=== PATIENT | female | born 1940 | race Caucasian/White ===

== ENCOUNTER → 2017-01-24 | Outpatient (CLI) | payer OTHER ==
[~2017-01-24] MED LIST: ACC10 PO; ASPEC81 PO; ATEN-175 PO; CLTP PO; COQ 10 PO; FLAX SEED OIL PO; FRS/40 PO; MULT-506 PO; OMEG10007 PO; POTA-335 PO
[2017-01-24 22:33] LABS: MEAN CELL VOLUME 95.9 fL (80-100); MEAN CORPUSCULAR HEMOGLOBIN 31.1 pg (25-34); MEAN CORPUSCULAR HGB CONC 32.4 g/dl (32-36); MEAN PLATELET VOLUME 10.3 fL (7.4-10.4); PLATELET COUNT 278 K/uL (130-400); RED BLOOD COUNT 5.11 M/uL (4.2-5.4); WHITE BLOOD COUNT 9.48 K/uL (4.8-10.8)
[2017-01-24 22:45] LABS: ALT/SGPT 20 U/L (12-78); BLOOD UREA NITROGEN 13 mg/dl (7-18); BUN/CREATININE RATIO 14.3 (10-20); CARBON DIOXIDE 29 mmol/L (21-32); CHLORIDE 103 mmol/L (98-107); CREATININE 0.93 mg/dl (0.60-1.20); GLUCOSE 114 mg/dl (70-99); POTASSIUM 4.3 mmol/L (3.5-5.1); SODIUM 139 mmol/L (136-145)
[2017-01-24 22:49] LABS: ALB/GLOB RATIO 0.8 (0.9-2); ALKALINE PHOSPHATASE 81 U/L (45-117); AST/SGOT 16 U/L (15-37)
[2017-01-24 22:55] LABS: CALCIUM 9.1 mg/dl (8.5-10.1)
== END | disposition home or self-care (01) ==
LOC: C.LAB 21:08
PROVIDERS: ATTEND Family Medicine
DX: M79.89 Other specified soft tissue disorders (principal)

== ENCOUNTER 2018-11-21 10:49 | Inpatient (IN) ==
[2018-11-21 11:52] LABS: Basophils # (auto) 0.02 K/uL (0-0.2); Basophils % (auto) 0.2 %; Eosinophils # (auto) 0.08 K/uL (0-0.5); Eosinophils % (auto) 0.9 %; Hematocrit (blood only) 41.7 % (37-47); Hemoglobin 12.9 g/dL (12.0-16.0); Immature Granulocytes # (auto) 0.02 K/uL (0.00-0.02); Immature Granulocytes % (auto) 0.2 %; Mean Corpuscular Hgb Conc 30.9 g/dL (32-36); Mean Corpuscular Volume 97.4 fL (80-100); Mean Platelet Volume 11.2 fL (7.4-10.4); Monocytes # (auto) 0.54 K/uL (0.11-0.59); Monocytes % (auto) 6.4 %; Neutrophils # (auto) 6.67 K/uL (1.4-6.5); Neutrophils % (auto) 79.3 %; Platelet Count 250 K/uL (130-400); RDW Coefficient of Variation 14.7 % (11.5-14.5); RDW Standard Deviation 52.2 fL (36.4-46.3); Red Blood Count 4.28 M/uL (4.2-5.4); White Blood Count 8.43 K/uL (4.8-10.8)
[2018-11-21 12:10] LABS: Alanine Aminotransferase 16 U/L (12-78); Albumin Level 3.4 gm/dl (3.4-5.0); Aspartate Aminotransferase 18 U/L (15-37); BUN Creatinine Ratio 21.3 (10-20); Blood Urea Nitrogen 22 mg/dl (7-18); Calcium 9.4 mg/dl (8.5-10.1); Carbon Dioxide 31 mmol/L (21-32); Chloride 105 mmol/L (98-107); Est GFR (African American) 59.9; Est GFR (Non-African American) 51.7; Glucose 121 mg/dl (70-99); INR 1.1 (0.9-1.1); Partial Thromboplastin Ratio 0.9; Partial Thromboplastin Time 23.2 Seconds (21.0-31.0); Potassium 4.1 mmol/L (3.5-5.1); Prothrombin Time 11.1 Seconds (9.0-12.0); Sodium 141 mmol/L (136-145)
[2018-11-21 12:18] LABS: Albumin Globulin Ratio 0.9 (0.9-2); Alkaline Phosphatase 73 U/L (45-117); Bilirubin,Total 0.6 mg/dl (0.2-1); Globulin 3.8 gm/dl (2.5-4.0); Total Protein 7.2 gm/dl (6.4-8.2); Troponin I 0.093 ng/ml (0-0.045)
--- NOTE | 2018-11-21 12:20 | XRay Report ---
XR chest 1V portable CLINICAL HISTORY: Cough. Shortness of breath. COMPARISON STUDY: Chest radiograph October 18, 2018. FINDINGS: Median sternotomy wires are noted. Cardiomegaly is noted. Lung volumes are diminished. Ther e is no pneumothorax. Small left and trace right pleural effusions are noted. Interstitial thickening is noted with bilateral airspace opacities. IMPRESSION: 1. Low lung volumes. Small left and trace right pleural effusions. 2. Interstitial thickening and bilateral opacities which favor pulmonary edema however an infectious process could appear similar. Electronically signed by: Elder Ceballos M.D. 11/21/2018 12:19 PM
[2018-11-21] MEDS ORDERED: ASPIRIN CHEW 324 MG PO STA (12:39)
[2018-11-21] MEDS ORDERED: BUMETANIDE 1 MG in SYRINGE 0 ML IV SCH (12:45)
[2018-11-21] MEDS ORDERED: BUMETANIDE 1 MG in SYRINGE 0 ML IV ONE (13:15)
[2018-11-21] MEDS ORDERED: ASPIRIN CHEW 324 MG ONE (13:30)
[2018-11-21] MEDS ORDERED: ACETAMINOPHEN 325 MG TAB PO PRN (14:45)
[2018-11-21] MEDS ORDERED: ALUMINUM/MAGNESIUM SUSP 30 ML UDC PO PRN (14:45)
[2018-11-21] MEDS ORDERED: ONDANSETRON INJ 2 MG/ML 2 ML VIAL IV PRN (14:45)
[2018-11-21] MEDS ORDERED: POLYETHYLENE (MIRALAX) 17 GM PACK PO PRN (14:45)
[2018-11-21] MEDS ORDERED: PERFLUTREN LIPID MICROSPHERE (DEFINITY) IV ONE (15:24)
[2018-11-21] MEDS ORDERED: HEPARIN IV BOLUS 5,000 UNITS in SYRINGE 0 ML IV ONE (16:15)
--- NOTE | 2018-11-21 16:18 | History & Physical Report ---
Date of Service November 21, 2018 Assessment & Plan (1) Elevated troponin: Patient has a minorly elevated troponin coupled with some dynamic EKG changes. Patient will be fully anticoagulated with heparin and troponin will be trended. The patient has refused any consideration for cardiac catheterization maintaining her beta-haseeb which is atenolol this may be considered to be changed to metoprolol. If she has chest pain we may consider adding nitrates. We will supplement her oxygen given her chronic lung disease. If we have any issues with rhythm or progressive changes we may involve cardiology consultation although she typically sees gate manager at another facility this appears to possibly be an N STEMI (2) CHF (congestive heart failure): Patient is acute on chronic diastolic heart failure she is given Bumex in the ER intravenously this will be continued paying attention to her electrolytes and renal function. At discharge she was placed on Aldactone she says she is not on that medication any longer (3) Coronary artery disease involving coronary bypass graft: Patient is a history of coronary artery disease with bypass grafting and multiple stents in the past. She previously has self discontinued Plavix therapy due to epistaxis she is maintained on aspirin 81 mg which will be escalated to 325 given the recent EKG changes atenolol 50 mg a day and is also on lisinopril outpatient dose is in question she believes is 40 our last record was 5 but subsequently only used 20 mg at this time (4) Restrictive lung disease: Patient has restrictive lung disease due to kyphoscoliosis. Typically does wear some oxygen at home. We will continue supplementing her oxygen we will not need any bronchodilators at this time (5) DVT prophylaxis: DVT prevention is heparin parenterally at this time History of Present Illness Primary Care Provider: Nicole Packer DO Patient presents to the ER with about a 6week incidence of slowly progressive shortness of breath and weight gain. She states her normal weight about 172 pounds she feels she is in the mid 180s. She is not tried to self increase any of her diuretic therapy at home until the last few days where she went from 1 mg of Bumex a day to 1-1/. She had no chest pain or pressure along the way she denies any dietary medical indiscretion along the way she does have a significant history most recently of having multiple recurrent pneumonias and usually either complicated by heart failure or heart failure complicated by pneumonia where she is been in and out of the hospital over the last 6 months. Patient gets most of her cardiology care and [place] with Dr. Mustafa. She previously has had a CABG stenting and aortic valve replacement which has been a bioprosthetic valve currently today the patient had no fevers or chills or cou ghing she does feel short of breath she is markedly swollen lower extremities in the emergency department she is found to have elevated troponin some T wave inversions which seem to be new on her EKG and chest x-ray consistent with bilateral pulmonary edema. She previously carries to the diagnosis of diastolic heart failure having a most recent echocardiogram in our facility over one year ago showing a preserved ejection fraction. In the ER the patient supplemental oxygen and Bumex therapy with the beginning of diuresis remainder of her evaluation other than was noted it was unremarkable Allergies Allergy/AdvReac Type Severity Reaction Status Date / Time cefaclor Allergy Unknown Verified 11/21/18 14:09 ibuprofen Allergy Unknown Verified 11/21/18 14:09 Home Medications Home Medications Medication Instructions Recorded Confirmed Type aspirin 81 mg PO HS 11/21/18 11/21/18 History atenolol 50 mg PO BID 11/21/18 11/21/18 History bumetanide 1 mg PO DAILY 11/21/18 11/21/18 History calcium carbonate-vitamin D3 1 tab PO BID 11/21/18 11/21/18 History [Caltrate 600 + D] cyanocobalamin (vitamin B-12) 1,000 mcg PO DAILY 11/21/18 11/21/18 History [Vitamin B-12] lisinopril 40 mg PO DAILY 11/21/18 11/21/18 History potassium chloride 20 meq PO DAILY 11/21/18 11/21/18 History Past Med/Surg History Medical History Respiratory distress CHF (congestive heart failure) Chronic diastolic heart failure Coronary artery disease involving coronary bypass graft History of pneumonia Restrictive lung disease Due to kyphoscoliosis Surgical History H/O aortic valve replacement with tissue graft Family History Unknown Coronary heart disease Other Family history non-contributory Social History Preferred Language: Bahraini Communication Ability: Effective Record Librarian Required: No marital status: Current Living Situation: Spouse current occupational status: retired Other Information That Helps Us Care for You: No Feels Safe at Home: Yes Safety Concerns: Feels Safe At This Time Smoking Status: Never smoker Do You Dip or Chew Tobacco: No Second Hand Exposure: No Tobacco Cessation Education Requested by Patient: No Hx Alcohol Use: No Hx Substance Use: No Review of Systems Review of Systems: ROS: Patient is tonic chronically ill and fatigued No double vision blurry vision No problems with speech or swallowing No palpitations, chest pain or pressure Dyspnea on exertion and orthopnea is complained of No abdominal pain nausea vomiting diarrhea increased weight gain as mentioned No burning urine urine frequency or changes in color No focal joint pain or muscle pain Chronic changes to the skin coloration of her lower extremities No unusual bruising or bleeding No focused back pain or numbness or loss of strength No changes in memory or confusion Physical Exam Vital Signs (Past 24 Hours): Last Vital Signs Temp 36.4 C L 11/21/18 14:46 Pulse 65 11/21/18 14:46 Resp 16 11/21/18 14:46 BP 140/70 11/21/18 14:46 Pulse Ox 100 11/21/18 14:46 The patient appeared chronically ill and fatigued Vital signs as documented. Oxygen was supplementation is satisfactory Head exam is unremarkable. normocephalic, atraumatic Neck is with minor jugular venous distension, thyromegaly, or lymphademopathy Lungs are decreased bilaterally poor air movement and rales at the bases Cardiac exam reveals Rhythm is regular. Systolic ejection murmur is faintly heard at the right upper sternal border first and second heart sounds normal. Abdominal exam reveals normal bowel sounds, no masses, no organomegaly Extremities are 2+ edematous and both lower extremities with chronic venous stasis changes Neurologic exam is A&Ox3, no focal deficits, strength is equal bilateral Psychologically seems depressed Skin is warm Dry without bruises or lesions other than her venous stasis dermatitis Results & Data Diagnostic Findings Chest x-ray 1. Low lung volumes. Small left and trace right pleural effusions. 2. Interstitial thickening and bilateral opacities which favor pulmonary edema however an infectious process could appear similar. ECG Additional Comments: Appears to be sinus mechanism LVH there is T wave inversions inferior laterally computer reads out ST depression these are hard to see given the baseline
[2018-11-21] MEDS: Heparin Adult STANDARD Wt-Based Dextrose 5% 25,000 units/500 mL IV SCH (17:23)
[2018-11-21] MEDS: BUMETANIDE 1 MG in SYRINGE 0 ML IV SCH (17:31)
--- NOTE | 2018-11-21 20:12 | Emergency Department Note ---
Entered by Charissa Solomon acting as a scribe for Tru Huertas M.D. History of Present Illness General Chief complaint: Swelling/Edema to Extremity Stated complaint: FLUID RETENSTION IN LEGS Source: patient History of Present Illness Onset (ago): week(s) 2 Location: lower extremity Pain Consistency: + other (worsening) Maximum Pain Intensity: 3 Quality: + other (swelling) Relieved By: + other (Oxygen); not by medication (Bumex, Lasix) Exacerbated By: + other (lying flat) Associated symptoms: + denies other symptoms (abdominal pain, arm swelling), + shortness of breath and + other (weight gain); no chest pain and no fever/chills (fever) The patient is a 78 year old female who presents to the Emergency Room with complaints of worsening leg swelling starting 2 weeks ago. The patient states that she has CHF and believes that she is taking on more fluid again. She notes that she has had a 15 lb weight gain since starting to retain fluid. She states that both her legs are swollen up into her thighs. She reports that she has also been more short of breath than normal. She notes that she is normally on 3L oxygen with mild relief. She reports that the shortness of breath is worse when lying flat. The patients daughter states that her mother was on Lasix 2 times a day, but it wasnt working. She states that a week ago she was switched to Bumex, but it still hasnt been helping. She reports that she called her PCP yesterday about her symptoms and recommended that she come to the ED for IV Lasix. The patient denies chest pain, fever, abdominal pain, arm swelling up, and eating salt. Home Medications Home Medications Medication Instructions Recorded Confirmed Type aspirin 81 mg PO HS 11/21/18 11/21/18 History atenolol 50 mg PO BID 11/21/18 11/21/18 History bumetanide 1 mg PO DAILY 11/21/18 11/21/18 History calcium carbonate-vitamin D3 1 tab PO BID 11/21/18 11/21/18 History [Caltrate 600 + D] cyanocobalamin (vitamin B-12) 1,000 mcg PO DAILY 11/21/18 11/21/18 History [Vitamin B-12] lisinopril 40 mg PO DAILY 11/21/18 11/21/18 History potassium chloride 20 meq PO DAILY 11/21/18 11/21/18 History Allergies Allergy/AdvReac Type Severity Reaction Status Date / Time cefaclor Allergy Unknown Verified 11/21/18 14:09 ibuprofen Allergy Unknown Verified 11/21/18 14:09 Past Med/Surg History Medical History Respiratory distress CHF (congestive heart failure) Chronic diastolic heart failure Coronary artery disease involving coronary bypass graft History of pneumonia Restrictive lung disease Due to kyphoscoliosis Surgical History H/O aortic valve replacement with tissue graft Social History Preferred Language: Portuguese Communication Ability: Effective Manager Travel Required: No marital status: Current Living Situation: Spouse current occupational status: retired Other Information That Helps Us Care for You: No Feels Safe at Home: Yes Safety Concerns: Feels Safe At This Time Smoking Status: Never smoker Do You Dip or Chew Tobacco: No Second Hand Exposure: No Tobacco Cessation Education Requested by Patient: No Hx Alcohol Use: No Hx Substance Use: No Review of Systems See HPI for pertinent positives & negatives. and A total of 10 systems reviewed and were otherwise negative Physical Exam Vital Signs Vital Signs - 24 hr 11/21/18 10:51 11/21/18 11:45 11/21/18 12:50 Temperature 36.4 C L Temperature Source Oral Sepsis Recent Fever Within 48 Hours No Sepsis New/Unexplained Change in Mental Status No Sepsis Action Taken by Nursing No Action Required Pulse Rate 70 Pulse Rate [Finger] Pulse Rate [Right Apical] 64 Pulse Rhythm [Finger] Pulse Rhythm [Right Apical] Pulse Strength [Finger] Pulse Strength [Right Apical] Respiratory Rate 24 18 Respiratory Effort / Characteristics Respiratory Depth Respiratory Pattern Blood Pressure 151/83 H Blood Pressure [Left Arm] Blood Pressure [Right Arm] 142/76 H Blood Pressure Mean 105 Blood Pressure Mean [Left Arm] Blood Pressure Mean [Right Arm] 98 Blood Pressure Position [Left Arm] Pulse Oximetry 88 L 94 94 Oxygen Delivery Method Nasal Cannula Nasal Cannula Nasal Cannula Oxygen Flow Rate 3 4 4 11/21/18 13:50 11/21/18 14:46 11/21/18 15:09 Temperature 36.4 C L Temperature Source Oral Sepsis Recent Fever Within 48 Hours Sepsis New/Unexplained Change in Mental Status Sepsis Action Taken by Nursing Pulse Rate Pulse Rate [Finger] Pulse Rate [Right Apical] 65 Pulse Rhythm [Finger] Pulse Rhythm [Right Apical] Regular Pulse Strength [Finger] Pulse Strength [Right Apical] Normal Respiratory Rate 16 Respiratory Effort / Characteristics Spontaneous SOB on Exertion SOB on Exertion SOB on Exertion Respiratory Depth Normal Normal Normal Respiratory Pattern Regular Regular Regular Blood Pressure Blood Pressure [Left Arm] Blood Pressure [Right Arm] 140/70 Blood Pressure Mean Blood Pressure Mean [Left Arm] Blood Pressure Mean [Right Arm] 93 Blood Pressure Position [Left Arm] Pulse Oximetry 100 Oxygen Delivery Method Nasal Cannula Nasal Cannula Nasal Cannula Oxygen Flow Rate 4 5 5 11/21/18 19:26 Temperature 36.5 C Temperature Source Oral Sepsis Recent Fever Within 48 Hours Sepsis New/Unexplained Change in Mental Status Sepsis Action Taken by Nursing Pulse Rate Pulse Rate [Finger] 67 Pulse Rate [Right Apical] Pulse Rhythm [Finger] Regular Pulse Rhythm [Right Apical] Pulse Strength [Finger] Normal Pulse Strength [Right Apical] Respiratory Rate 18 Respiratory Effort / Characteristics Non-Labored Respiratory Depth Normal Respiratory Pattern Blood Pressure Blood Pressure [Left Arm] 99/51 L Blood Pressure [Right Arm] Blood Pressure Mean Blood Pressure Mean [Left Arm] 67 Blood Pressure Mean [Right Arm] Blood Pressure Position [Left Arm] Lying Pulse Oximetry 92 Oxygen Delivery Method Nasal Cannula Oxygen Flow Rate 5 GENERAL: Awake, alert, weak-appearing sitting up right HENT: Normocephalic, atraumatic. EYES: Normal conjunctiva. Sclera non-icteric. NECK: Supple. No nuchal rigidity. RESPIRATORY: Diminished breath sounds at the bases. Normal respiratory effort. CARDIAC: Normal rate. Normal rhythm. Extremities warm and well perfused. GI: Soft, non-distended. No tenderness to palpation. RECTAL: Deferred. MUSCULOSKELETAL: Atraumatic. Chest examination reveals no tenderness. LOWER EXTREMITIES: Calves are equal size bilaterally and non-tender. 2+ lower extremity edema with erythema bilaterally. NEURO: Normal sensorium. No sensory or motor deficits noted. No facial droop. SKIN: Warm and dry. No rash or jaundice noted. Course 1227: The patient was evaluated in room B6, and a complete history and physical examination were performed. I discussed her test results with her and updated her on her treatment plan at this time. 1241: I reviewed the patient's case with Dr. Baudilio SILVER Hospitalist. He will evaluate the patient for further management. Consultations Consultation #1: I reviewed the patient's case with Dr. Baudilio SILVER Hospitalist. He will evaluate the patient for further management. Time: 12:41 Administered Medications Bumetanide 1 mg/ Syringe 4 mls @ 4 mls/min IV BID@0900,1700 [facility] Stop: 12/21/18 16:59 Last Admin: 11/21/18 17:31 Dose: 4 mls/min Documented by: [id number] Heparin Sodium/Dextrose (Heparin Sodium/Dextrose) 25,000 units in 500 mls @ 23 mls/hr IV .[id number] [facility]; Protocol Stop: 12/21/18 16:14 Last Admin: 11/21/18 17:23 Dose: 1,150 units/hr, 23 mls/hr Documented by: [id number] Cosigned by: [id number] Discontinued Medications Aspirin (Aspirin) 324 mg PO NOW STA Stop: 11/21/18 12:40 Last Admin: 11/21/18 13:32 Dose: 324 mg Documented by: [id number] Heparin Sodium/Dextrose () 1 ea IV Q15M [facility]; Protocol Stop: 11/21/18 16:01 Last Admin: 11/21/18 18:00 Dose: Not Given Documented by: [id number] Admin: 11/21/18 18:00 Dose: Not Given Documented by: [id number] Admin: 11/21/18 18:00 Dose: Not Given Documented by: [id number] Admin: 11/21/18 18:00 Dose: Not Given Documented by: [id number] Admin: 11/21/18 17:59 Dose: Not Given Documented by: [id number] Bumetanide 1 mg/ Syringe 4 mls @ 4 mls/min IV NOW ONE Stop: 11/21/18 13:16 Last Admin: 11/21/18 13:32 Dose: 4 mls/min Documented by: [id number] Heparin Sodium (Porcine) 5,000 (units/ Syringe) 5 mls @ 10 mls/min IV NOW ONE Stop: 11/21/18 16:16 Last Admin: 11/21/18 17:21 Dose: 10 mls/min Documented by: [id number] Cosigned by: [id number] Perflutren Lipid Microsphere (Definity) 2 ml IV ONCE ONE Stop: 11/21/18 15:25 Last Admin: 11/21/18 15:24 Dose: 2 ml Documented by: [id number] Medical Decision Making Differential Diagnosis Differential diagnosis: Etiologies such as infections, reactive airway disease, COPD, pneumonia, pleural effusion, pulmonary edema, ARDS, pneumothorax, CHF, cardiac ischemia, cardiac tamponade, dysrhythmia, anemia, pulmonary embolism, musculoskeletal, gastrointestinal process, as well as others were entertained. Medical Records Attestation: I reviewed the patient's medical records. Home Medications Current Medication List: was personally reviewed by me Laboratory Data Attestation: I reviewed the patient's lab results. Result diagrams: 11/21/18 11:02 11/21/18 11: Lab Results 11/21/18 11/21/18 11/21/18 Range/Units 11:02 11:02 11:02 WBC 8.43 (4.8-10.8) K/uL RBC 4.28 (4.2-5.4) M/uL Hgb 12.9 (12.0-16.0) g/dL Hct 41.7 (37-47) % MCV 97.4 (80-100) fL MCH 30.1 (25-34) pg MCHC 30.9 L (32-36) g/dL RDW Std Deviation 52.2 H (36.4-46.3) fL RDW Coeff of Jose 14.7 H (11.5-14.5) % Plt Count 250 (130-400) K/uL MPV 11.2 H (7.4-10.4) fL Immature Gran % (Auto) 0.2 % Neut % (Auto) 79.3 % Lymph % (Auto) 13.0 % [place] % (Auto) 6.4 % Eos % (Auto) 0.9 % Baso % (Auto) 0.2 % Immature Gran # (Auto) 0.02 (0.00-0.02) K/uL Neut # (Auto) 6.67 H (1.4-6.5) K/uL Lymph # (Auto) 1.10 L (1.2-3.4) K/uL [place] # (Auto) 0.54 (0.11-0.59) K/uL Eos # (Auto) 0.08 (0-0.5) K/uL Baso # (Auto) 0.02 (0-0.2) K/uL PT 11.1 (9.0-12.0) Seconds INR 1.1 (0.9-1.1) APTT 23.2 (21.0-31.0) Seconds PTT Ratio 0.9 Sodium 141 (136-145) mmol/L Potassium 4.1 (3.5-5.1) mmol/L Chloride 105 (98-107) mmol/L Carbon Dioxide 31 (21-32) mmol/L Anion Gap 5.0 (3-11) BUN 22 H (7-18) mg/dl Creatinine 1.03 (0.6-1.2) mg/dl Est Cr Clr Drug Dosing Not Reportable Est GFR ( Amer) 59.9 Est GFR (Non-Af Amer) 51.7 BUN/Creatinine Ratio 21.3 H (10-20) Glucose 121 H (70-99) mg/dl Calcium 9.4 (8.5-10.1) mg/dl Total Bilirubin 0.6 (0.2-1) mg/dl AST 18 (15-37) U/L ALT 16 (12-78) U/L Alkaline Phosphatase 73 (45-117) U/L Troponin I 0.093 H* (0-0.045) ng/ml Total Protein 7.2 (6.4-8.2) gm/dl Albumin 3.4 (3.4-5.0) gm/dl Globulin 3.8 (2.5-4.0) gm/dl Albumin/Globulin Ratio 0.9 (0.9-2) Imaging Data Radiologist's Impression: Radiology results as stated below per my review and the radiologist's interpretation: XR chest 1V portable CLINICAL HISTORY: Cough. Shortness of breath. COMPARISON STUDY: Chest radiograph October 18, 2018. FINDINGS: Median sternotomy wires are noted. Cardiomegaly is noted. Lung volumes are diminished. There is no pneumothorax. Small left and trace right pleural effusions are noted. Interstitial thickening is noted with bilateral airspace opacities. IMPRESSION: 1. Low lung volumes. Small left and trace right pleural effusions. 2. Interstitial thickening and bilateral opacities which favor pulmonary edema however an infectious process could appear similar. Electronically signed by: Elder Ceballos M.D. 11/21/2018 12:19 PM ECG Data Attestation: I personally reviewed and interpreted this ECG as follows: Indication: SOB/dyspnea Rate (beats per minute): 65 Rhythm: normal sinus Findings: + other (tremor noted) and + nonspecific-ST abn; no ST elevation Blood Pressure Blood Pressure Findings: Elevated blood pressure Blood Pressure Disposition: further management by hospitalist AKILA Narrative 78-year-old female with a past medical history of CAD status post CABG and stent, CHF, hypertension presenting today complaining of increased fluid buildup in lower legs with shortness of breath on exertion. Patient hypoxic on room air. Patient's noted to have a positive troponin significantly elevated compared to previous. No leukocytosis or anemia. Kidney function appears stable. No evidence of hepatitis. Not having any chest pain. Evidence of significant fluid overload. Has been on increased Bumex for the last several weeks but no increased oxygen. Given IV Bumex here to help with diuresis. Will admit for further monitored IV diuresis given that she is failed outpatient diuresis and with the troponin. EKG was nonspecific T wave changes patient did not have active chest pain. Believe the troponin elevation is secondary to fluid overload status. Did give aspirin as well. Hospitalist contacted. Impression & Plan Pulmonary edema, CHF exacerbation, Non-ST elevation [place] (NSTEMI) Discharge Plan Visit Data *Final* Discharge Date/Time: 11/21/18 14:18 Chief Complaint: Swelling/Edema to Extremity Stated Complaint: FLUID RETENSTION IN LEGS ED Provider: Tru Huertas Discharge Problem: Pulmonary edema, CHF exacerbation, Non-ST elevation [place] (NSTEMI) Patient Disposition: Admitted As Inpatient Discharge Instructions Interventions: ED Discharge Assessment Last Done: 11/21/18 14:18 Discharge Problem: Pulmonary edema Qualifiers: Chronicity: chronic Qualified Code(s): J81.1 - Chronic pulmonary edema CHF exacerbation Qualifiers: Heart failure type: unspecified Qualified Code(s): I50.9 - Heart failure, unspecified The scribe's documentation has been prepared under my direction and personally reviewed by me in its entirety. I confirm that the note above accurately reflects all work, treatment, procedures, and medical decision making performed by me.
[2018-11-21] MEDS: DOCUSATE SODIUM 100 MG CAP PO SCH (20:57)
[2018-11-21 23:48] LABS: Partial Thromboplastin Ratio 1.9
[2018-11-21 23:55] LABS: Partial Thromboplastin Time 52.1 Seconds (21.0-31.0)
[2018-11-22 07:25] LABS: Partial Thromboplastin Ratio 1.8
[2018-11-22 07:26] LABS: Partial Thromboplastin Time 49.9 Seconds (21.0-31.0)
[2018-11-22] MEDS: LISINOPRIL 20 MG TAB PO SCH (07:34)
[2018-11-22] MEDS: POTASSIUM CHLORIDE 20 MEQ TABCR PO SCH (07:34)
[2018-11-22] MEDS: MULTIVITAMIN TAB PO SCH (07:34)
[2018-11-22] MEDS: FLUTICASONE PROPIONATE NA SPR 16 GM BTL SCH (07:35)
[2018-11-22] MEDS: DOCUSATE SODIUM 100 MG CAP PO SCH ×2 (07:35→20:31)
[2018-11-22] MEDS: ASPIRIN 325 MG ECTAB PO SCH (07:35)
[2018-11-22] MEDS: BUMETANIDE 1 MG in SYRINGE 0 ML IV SCH ×2 (07:36→17:50)
[2018-11-22 07:37] LABS: BUN Creatinine Ratio 22.6 (10-20); Calcium 8.9 mg/dl (8.5-10.1); Creatinine Clr Calc Pharmacy 38.6 ml/min; Est GFR (African American) 60.6; Est GFR (Non-African American) 52.3; Potassium 4.1 mmol/L (3.5-5.1)
[2018-11-22] MEDS ORDERED: ATENOLOL 50 MG TABLET PO SCH (09:00)
[2018-11-22] MEDS: SENNA 8.6 MG TAB PO SCH (12:04)
[2018-11-22] MEDS: Heparin Adult STANDARD Wt-Based Dextrose 5% 25,000 units/500 mL IV SCH (12:05)
--- NOTE | 2018-11-22 13:46 | Hospitalist Progress Note ---
Date of Service November 22, 2018 Assessment & Plan (1) Elevated troponin: Patient has a minorly elevated troponin coupled with some dynamic EKG changes. Patient's troponin remains elevated but is not trended upward. Patient remain on therapeutic heparin for 48 hours we may consider this demand ischemia unless troponin changes significantly the patient has refused any consideration for cardiac catheterization maintaining her beta-haseeb which is atenolol She states her atenolol was 25 twice daily supplement her oxygen given her chronic lung disease. (2) CHF (congestive heart failure): Patient is acute on chronic diastolic heart failure she is given Bumex in the ER intravenously this will be continued paying attention to her electrolytes and renal function. At discharge she was placed on Aldactone she says she is not on that medication any longer continue intravenous diuresis (3) Coronary artery disease involving coronary bypass graft: Patient is a history of coronary artery disease with bypass grafting and multiple stents in the past. She previously has self discontinued Plavix therapy due to epistaxis she is maintained on aspirin 81 mg which will be escalated to 325 given the recent EKG changes atenolol 25 twice daily and is also on lisinopril outpatient dose is in question she believes is 40 our last record was 5 but subsequently only used 20 mg at this time (4) Restrictive lung disease: Patient has restrictive lung disease due to kyphoscoliosis. Typically does wear some oxygen at home. We will continue supplementing her oxygen she has not showed a need for any bronchodilators at this time Chronic respiratory failure with hypoxia (5) DVT prophylaxis: DVT prevention is heparin parenterally at this time (6) Morbid obesity: Morbid obesity, BMI 44.0 kg/m*m Subjective Patient states she feels improved she feels less swollen and less short of breath Review of Systems Review of Systems: ROS: We kyphotic and chronically ill No double vision blurry vision No problems with speech or swallowing No palpitations, chest pain or pressure No baseline dyspnea No abdominal pain nausea vomiting diarrhea changes in appetite or weight No burning urine urine frequency or changes in color No focal joint pain or muscle pain baseline lower extremity edema No skin rashes or oral lesions No unusual bruising or bleeding Persistent chronic back pain but no numbness or loss of strength No changes in memory or confusion Physical Exam Physical Exam: The patient appeared well nourished and normally developed. Vital signs as documented. Head exam is unremarkable. normocephalic, atraumatic Neck is without jugular venous distension, thyromegaly, or lymphademopathy Lungs are clear with decreased breath sounds heard bilaterally Cardiac exam reveals Rhythm is regular systolic ejection murmur is heard. First and second heart sounds normal. Abdominal exam reveals normal bowel sounds, no masses, no organomegaly Extremities are mild to moderately edematous and both pedal pulses are present Neurologic exam is A&Ox3, no focal deficits, strength is equal bilateral Psychologically seems neither anxious or depressed Skin is warm Dry Results & Data Vital Signs (Past 12 Hours) Vital Signs Temp Pulse Resp BP Pulse Ox 11/22/18 11:09 36.7 C 62 20 101/51 L 92 11/22/18 07:25 36.7 C 66 24 117/60 91 11/22/18 03:24 36.9 C 66 24 126/55 L 90
--- NOTE | 2018-11-22 16:54 | Cardiology Consultation ---
Date of Consultation November 22, 2018 Assessment & Plan (1) Elevated troponin: Her troponin on presentation was slightly elevated at 0.093, this added descending pattern over the next 2 subsequent measurements. This is consistent with demand ischemia from hypoxia and her known heart disease. I would not pursue further evaluation. (2) CHF exacerbation: It sounds as though she had a gradual worsening of her heart failure until she presented with fluid overload and worsening shortness of breath. She seems quite cognizant of fluid and salt restriction. She has responded well to initial diuresis. Her echocardiogram does not show any significant changes (although she has worsening of her pulmonary hypertension) which would explain heart failure. I would therefore treat her as you are with diuresis. (3) Pulmonary hypertension: Her echocardiogram shows significant pulmonary hypertension. This is no doubt on the basis of long-standing lung disease and hypoxia. Diuresis may help somewhat, there is little else to do. 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 This is based on exam and recent echo. This valve does not require anticoagulation. (5) Mitral regurgitation: She has mitral regurgitation, evidently this was not seen on her prior echocardiogram but it is eccentric and perhaps it was missed. It may be contributing to pulmonary hypertension, and it may be contributing to her CHF but it is not severe enough that we would consider valve replacement or surgery. She seems to be aware that she has difficulties with her valve and that she is not a surgical candidate for repair of it. History of Present Illness Reason for Consultation: CHF, elevated troponin Attending Physician: Aniceto Day MD History of Present Illness This is a 78-year-old woman with a history of coronary artery disease and aortic valve abnormalities who underwent aortic valve replacement in 2001 (she tells me it is a human valve) along with bypass surgery x2. She has also had PCI in the past. I believe her last intervention was October 06, 2017. She has chronic diastolic congestive heart failure, obstructive sleep apnea for which she uses CPAP and pulmonary hypertension. She presents now with shortness of breath. She describes 1 month of progressive shortness of breath and weight gain. She has been adjusting her diuretics but has continued to gain weight and become short of breath. She is on chronic oxygen at home and she noted that her oximetry reading was low even on her normal 3 L/min. She came into the emergency room and was felt to be in congestive heart failure and received diuretics. Today she feels better although she is still having shortness of breath. She feels that she has had a good diuresis. She does not have chest discomfort. She was observed to have an elevated troponin as well and her electrocardiogram had some anterior T wave abnormalities which may be dynamic. Allergies Allergy/AdvReac Type Severity Reaction Status Date / Time cefaclor Allergy Unknown Verified 11/21/18 14:09 ibuprofen Allergy Unknown Verified 11/21/18 14:09 Home Medications Home Medications Medication Instructions Recorded Confirmed Type aspirin 81 mg PO HS 11/21/18 11/21/18 History atenolol 50 mg PO BID 11/21/18 11/21/18 History bumetanide 1 mg PO DAILY 11/21/18 11/21/18 History calcium carbonate-vitamin D3 1 tab PO BID 11/21/18 11/21/18 History [Caltrate 600 + D] cyanocobalamin (vitamin B-12) 1,000 mcg PO DAILY 11/21/18 11/21/18 History [Vitamin B-12] lisinopril 40 mg PO DAILY 11/21/18 11/21/18 History potassium chloride 20 meq PO DAILY 11/21/18 11/21/18 History Patient History Medical History Respiratory distress CHF (congestive heart failure) Chronic diastolic heart failure Coronary artery disease involving coronary bypass graft History of pneumonia Restrictive lung disease Due to kyphoscoliosis Surgical History H/O aortic valve replacement with tissue graft Family History Unknown Coronary heart disease Other Family history non-contributory Social History Preferred Language: Wallisian Communication Ability: Effective Mental Health Program Director Required: No marital status: Current Living Situation: Spouse current occupational status: retired Other Information That Helps Us Care for You: No Feels Safe at Home: Yes Safety Concerns: Feels Safe At This Time Smoking Status: Never smoker Do You Dip or Chew Tobacco: No Second Hand Exposure: No Tobacco Cessation Education Requested by Patient: No Hx Alcohol Use: No Hx Substance Use: No Review of Systems Review of Systems: All systems reviewed & are unremarkable except as noted in HPI & below Physical Exam Physical Exam: Constitutional: Alert, cooperative and in no distress. HEENT: Unremarkable Neck: No jugular venous distention, carotid pulses are normal and equal bilaterally without bruits. Pulmonary: Clear to auscultation bilaterally. Cardiac: Regular rhythm with a soft crescendo decrescendo murmur at the base with a grade 2/6 holosystolic murmur at the apex, no gallop or rub. Abdomen: Soft, nontender with normal bowel sounds. Extremities: +3 bilateral pretibial edema. Distal pulses intact. Neurologic: No focal findings. Gait was not tested. Skin: No rash, ecchymoses or petechiae. Results & Data Vital Signs (Past 12 Hours) Vital Signs Temp Pulse Resp BP BP Pulse Ox 11/22/18 15:27 36.5 C 69 19 133/71 91 11/22/18 11:09 36.7 C 62 20 101/51 L 92 11/22/18 07:25 36.7 C 66 24 117/60 91 Diagnostic Findings Her presenting electrocardiogram shows sinus rhythm at 65 bpm with inferior and anterior T wave abnormalities including T wave inversion. Another electrocardiogram done today shows sinus rhythm at 65 bpm with nonspecific inferior and anterior ST-T abnormalities, slight improvement in precordial T wave inversion but not a lot different. An echocardiogram done yesterday shows normal left ventricular size and function with mild concentric left ventricular hypertrophy, moderate to severe mitral calcification with moderate mitral regurgitation, severe pulmonary hypertension. The estimated pulmonary arterial pressure 65 to 70 mmHg. Telemetry: Sinus rhythm, no significant abnormality (1) CHF exacerbation Heart failure type: unspecified Qualified Code(s): I50.9 - Heart failure, unspecified
[2018-11-22] MEDS: ATENOLOL 25 MG TABLET PO SCH (20:32)
[2018-11-23 06:56] LABS: Hematocrit (blood only) 36.6 % (37-47); Hemoglobin 11.3 g/dL (12.0-16.0); Mean Corpuscular Hgb Conc 30.9 g/dL (32-36); Mean Corpuscular Volume 96.6 fL (80-100); Mean Platelet Volume 11.2 fL (7.4-10.4); Platelet Count 211 K/uL (130-400); RDW Coefficient of Variation 14.7 % (11.5-14.5); RDW Standard Deviation 52.4 fL (36.4-46.3); Red Blood Count 3.79 M/uL (4.2-5.4); White Blood Count 6.54 K/uL (4.8-10.8)
[2018-11-23 07:06] LABS: Partial Thromboplastin Ratio 1.2; Partial Thromboplastin Time 31.7 Seconds (21.0-31.0)
[2018-11-23 07:26] LABS: BUN Creatinine Ratio 27.5 (10-20); Calcium 8.9 mg/dl (8.5-10.1); Creatinine Clr Calc Pharmacy 41.9 ml/min; Est GFR (African American) 66.9; Est GFR (Non-African American) 57.7
[2018-11-23] MEDS: DOCUSATE SODIUM 100 MG CAP PO SCH ×2 (08:53→20:09)
[2018-11-23] MEDS: BUMETANIDE 1 MG in SYRINGE 0 ML IV SCH ×2 (08:53→17:06)
[2018-11-23] MEDS: ATENOLOL 25 MG TABLET PO SCH ×2 (08:53→20:10)
[2018-11-23] MEDS: MULTIVITAMIN TAB PO SCH (08:53)
[2018-11-23] MEDS: LISINOPRIL 20 MG TAB PO SCH (08:53)
[2018-11-23] MEDS: POTASSIUM CHLORIDE 20 MEQ TABCR PO SCH (08:53)
[2018-11-23] MEDS: SENNA 8.6 MG TAB PO SCH (08:54)
[2018-11-23] MEDS: FLUTICASONE PROPIONATE NA SPR 16 GM BTL SCH (08:54)
[2018-11-23] MEDS: ASPIRIN 325 MG ECTAB PO SCH (08:54)
--- NOTE | 2018-11-23 10:24 | XRay Report ---
XR chest 1V portable CLINICAL HISTORY: hypoxia dyspnea COMPARISON STUDY: 11/21/2018 FINDINGS: Slight increase in volume of a left basilar pleural effusion. Moderate stable cardiomegaly. Right lung is considered clear. IMPRESSION: Slight increase in volume of a left basilar pleural effusion. Study is otherwise unchang ed. The above report was generated using voice recognition software. It may contain grammatical, syntax or spelling errors. Electronically signed by: Andrés Joaquin M.D. 11/23/2018 10:22 AM
[2018-11-23 11:40] LABS: Albumin Level 3.1 gm/dl (3.4-5.0); Total Protein 6.5 gm/dl (6.4-8.2)
--- NOTE | 2018-11-23 15:24 | Hospitalist Progress Note ---
Date of Service November 23, 2018 Assessment & Plan (1) Acute on chronic respiratory failure with hypoxia: Patient is more profoundly hypoxic she has multiple medical reasons that all result in her having respiratory failure from restrictive lung disease due to her kyphosis to her previous history of heart failure to likely atelectasis due to a small pleural effusion. These of all added together to create more profound hypoxia. The patient is agreeable to trying BiPAP in a short-term [place] consultation is also engaged the BiPAP is hopeful to recruit some of her atelectasis to improve her surface area and improve her oxygenation she currently does not appear to be in acute heart failure (2) Elevated troponin: Patient has a minorly elevated troponin coupled with some dynamic EKG changes. Patient's troponin remains elevated but is not trended upward. Heparin was discontinued, consider this demand ischemia the patient has refused any consideration for cardiac catheterization maintaining her beta-haseeb which is atenolol She states her atenolol was 25 twice daily supplement her oxygen given her chronic lung disease. (3) CHF (congestive heart failure): Patient is acute on chronic diastolic heart failure is been maintained on intravenous Bumex with reasonable diuresis and no renal distress at discharge she was placed on Aldactone she says she is not on that medication any longer continue intravenous diuresis (4) Coronary artery disease involving coronary bypass graft: Patient is a history of coronary artery disease with bypass grafting and multiple stents in the past. She previously has self discontinued Plavix therapy due to epistaxis she is maintained on aspirin 81 mg which will be escalated to 325 given the recent EKG changes atenolol 25 twice daily and is also on lisinopril outpatient dose is in question she believes is 40 our last record was 5 but subsequently only used 20 mg at this time (5) Restrictive lung disease: Patient has restrictive lung disease due to kyphoscoliosis. Typically does wear some oxygen at home. We will continue supplementing her oxygen she has not showed a need for any bronchodilators at this time Chronic respiratory failure with hypoxia Attempt BiPAP (6) DVT prophylaxis: DVT prevention is heparin parenterally at this time (7) Morbid obesity: Morbid obesity, BMI 44.0 kg/m*m Subjective The patient subjectively feels better but overall has increasing oxygen requirements. She has had some weight reduction with diuresis does not claim to feel dyspneic but her saturation is to plummet she is on escalated doses of nasal cannula oxygen. He does not have significant coughing fever or leukocytosis to be concerned with an infectious process repeat x-ray was suggestive of possible effusion or atelectasis but bedside ultrasound did not suggest effusion was significant enough to remove to improve her ventilation. Her ventilation is limited by her kyphosis Review of Systems Review of Systems: ROS: Chronically ill weak fatigue No double vision blurry vision No problems with speech or swallowing No palpitations, chest pain or pressure No Wheezing dyspnea, shortness of breath No abdominal pain nausea vomiting diarrhea changes in appetite or weight No burning urine urine frequency or changes in color No focal joint pain or muscle pain or extremity swelling No skin rashes or oral lesions No unusual bruising or bleeding Chronic lower focused back pain but no numbness or loss of strength No changes in memory or confusion Physical Exam Physical Exam: The patient appeared chronically ill Vital signs as documented. Lower blood pressures Head exam is unremarkable. normocephalic, atraumatic Neck is withjugular venous distension, thyromegaly, or lymphademopathy Lungs are diminished breath sounds at the bases more so at the left no wheezes only mild basilar rales Cardiac exam reveals Rhythm is regular. Systolic ejection murmur first and second heart sounds normal. Abdominal exam reveals normal bowel sounds, no masses, no organomegaly Extremities are mildly edematous and both pedal pulses are present Neurologic exam is A&Ox3, no focal deficits, strength is equal bilateral Psychologically seems neither anxious or depressed Skin is warm Dry without bruises or lesions Results & Data Vital Signs (Past 12 Hours) Vital Signs Temp Pulse Resp BP BP Pulse Ox 11/23/18 15:10 36.8 C 68 19 94/44 L 95 11/23/18 10:48 36.6 C 62 20 109/47 L 91 11/23/18 07:22 36.5 C 64 19 106/43 L 90 11/23/18 03:45 36.7 C 63 20 103/59 L 90
--- NOTE | 2018-11-23 17:30 | Cardiology Progress Note ---
Date of Service November 23, 2018 Assessment & Plan (1) Elevated troponin: Her troponin on presentation was slightly elevated at 0.093, this added descending pattern over the next 2 subsequent measurements. This is consistent with demand ischemia from hypoxia and her known heart disease. I would not pursue further evaluation. (2) CHF exacerbation: We have made little progress on her CHF, her I and O and weight is hard to evaluate. Symptomatically she does not appear to be improved. We cannot go up any further on her Bumex. We could consider Zaroxolyn, or switch to a continuous diuretic infusion. I would like to watch her for another day since it is hard to evaluate her fluid status today. (3) Pulmonary hypertension: Her echocardiogram shows significant pulmonary hypertension. This is no doubt on the basis of long-standing lung disease and hypoxia. Diuresis may help somewhat, there is little else to do. 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 This is based on exam and recent echo. This valve does not require anticoagulation. (5) Mitral regurgitation: She has mitral regurgitation, evidently this was not seen on her prior echocardiogram but it is eccentric and perhaps it was missed. It may be contrib uting to pulmonary hypertension, and it may be contributing to her CHF but it is not severe enough that we would consider valve replacement or surgery. She seems to be aware that she has difficulties with her valve and that she is not a surgical candidate for repair of it. Subjective She is not very communicative today, she does not tell me that she feels any better or worse today. Results & Data Vital Signs (Past 12 Hours) Vital Signs Temp Pulse Resp BP BP Pulse Ox 11/23/18 16:05 16 90 11/23/18 15:10 36.8 C 68 19 94/44 L 95 11/23/18 10:48 36.6 C 62 20 109/47 L 91 11/23/18 07:22 36.5 C 64 19 106/43 L 90 Diagnostic Findings Telemetry: Sinus rhythm, sinus bradycardia, no significant arrhythmia Electrocardiogram this morning: Sinus rhythm 61, similar to prior (1) CHF exacerbation Heart failure type: unspecified Qualified Code(s): I50.9 - Heart failure, unspecified
--- NOTE | 2018-11-23 22:38 | Consultation Report ---
DATE OF CONSULTATION: 11/23/2018 TIME: 2:20 p.m. REPORT OF CONSULTATION: The patient was seen in room 205. She is a 78-year-old female with a chief complaint of shortness of breath and peripheral edema. For the past several weeks, she has been retaining more fluid and gaining weight. Reportedly, she had gained about 15 pounds prior to admission. Her legs were swollen up into her thighs. She has been more short of breath than normal. She is on 3 liters of oxygen continuously. She states that she lives at home with her . She had been on Lasix at home, but it did not seem to be causing significant diuresis. She has been in the hospital about 48 hours. She feels that she is somewhat better. However, she is still short of breath and tachypnea, can requiring quite a bit of oxygen. Currently, she is on 5 liters. Her weight has been decreasing since she came in. She started off at 90 kilograms and is down to 85.6 kilograms. She does have a Galdamez in place. I am surprised she has lost that much weight and I am questioning the reliability. For the prior 24 hours, she had only 750 mL of output. The patient carries a history of diastolic congestive heart failure. She has known restrictive lung disease. She has a definite kyphoscoliosis. Reportedly, she has had at least 2 pneumonias in the past. The patient was tested for sleep apnea. She was found to have significant sleep apnea, she acknowledges. She states that she could not tolerate CPAP because of too much noise. I believe, however, she actually was significantly bothered by the mask and probably with the air pressure. The staff has been trying to get the patient to do incentive spirometry. She has been resistant to that. She states she knows she can do it. She refuses having pulmonary function test done. She claims that the last time it was done. She had a decreased oxygen level for 4 days and she was sure was from the PFTs. Consultation was requested at this time because of what appeared to be an increasing left pleural effusion. Duarte Curtis PA-C did a bedside ultrasound. This showed small pockets of fluid, but not a considerable amount of fluid that would mandate thoracentesis. She has a mild cough. There is no sputum. She states at home, she is short of breath going from room to room. She sleeps in a recliner because it is more comfortable on her back. The patient admits to being tired. She is sleepy during the day. She has longstanding insomnia with difficulty falling asleep. She has chronic constipation. She is more short of breath than normal when she eats a meal. The patient has never smoked. She does not drink alcohol. PAST SURGICAL HISTORY: 1. Coronary artery bypass graft and aortic valve replacement with a tissue valve in 2001. 2. Cardiac stent x2. 3. Hysterectomy. 4. Appendectomy. 5. Cholecystectomy. PAST MEDICAL HISTORY: 1. Diastolic CHF. 2. Coronary artery disease. 3. Restrictive lung disease. 4. Pneumonia. 5. Pulmonary hypertension which is severe on echocardiogram. 6. DJD of the spine. 7. Hypertension. 8. Sleep apnea as noted. ALLERGIES: CEFACLOR and IBUPROFEN. FAMILY HISTORY: Mother age 70, [place] and breast cancer. Father age 65, lung problems. OCCUPATIONAL HISTORY: The patient worked for 2 years in a [employer]. 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 REVIEW OF SYSTEMS: Negative except as noted above in the history of present illness. MEDICATIONS AN OUTPATIENT: 1. Aspirin 81 mg daily. 2. Atenolol 50 mg b.i.d. 3. Bumetanide 1 mg daily. 4. Calcium D. 5. Vitamin B12. 6. Lisinopril. 7. Potassium 20 mEq daily. PHYSICAL EXAMINATION: GENERAL: The patient is a 78-year-old female who was cooperative, alert and oriented. She was tachypneic at rest. She did not look in distress; however. She was able to speak clearly. HEENT: Pupils were reactive. Nares were clear. No evidence of blood was seen in the nostrils. Mouth exam showed dentures on top. There is crowding of the pharynx. She has marked difficulty with extension of the cervical spine. CARDIAC: Cardiac rate was 73 per minute. Rhythm was regular. Blood pressure 109/47. LUNGS: Lung flaherty reveals rales posteriorly bilaterally. The breath sounds are decreased at the left base. There is some dullness to percussion in this area. Saturation had been 91% on 5 liters, but at the time of my exam, it was 86%. ABDOMEN: Soft. It was obese. Bowel sounds were present. There was no focal tenderness. EXTREMITIES: Reveal moderate edema. This would be estimated to be +1 to +2. It is not all the way up the thigh like I was led to believe. There was no cyanosis or clubbing. LABORATORY DATA: CBC shows a white count of 6.54. Hemoglobin 11.3. Platelets 211,000. Electrolytes show sodium 139, potassium 4, chloride 102, bicarbonate 31. BUN 26 with creatinine 0.94. Blood sugar was 93. Troponins have been mildly elevated with the highest of 0.093. X-ray done on admission showed small lung volumes with small left and trace right pleural effusions. Pulmonary edema was suggested based upon interstitial thickening and bilateral opacities. A repeat x-ray done today showed what appeared to be an increase in volume of the left pleural effusion versus atelectasis. IMPRESSION: 1. Small left pleural effusion. 2. Acute on chronic respiratory failure with hypoxia. 3. Severe pulmonary hypertension based upon echocardiogram. 4. Restrictive lung disease, likely secondary to kyphoscoliosis. 5. Atelectatic changes left base. 6. Obstructive sleep apnea -- untreated. COMMENTS AND RECOMMENDATIONS: Case was discussed with Dr. Day. The ultrasound would suggest there is likely not enough fluid to make the benefit of thoracentesis greater than the risk. In an ideal world, it would be great to treat the patient with BiPAP. This might improve sleep apnea and it might improve her lung restriction. She has been resistant to this in the past. I did have her do some incentive spirometry with my close observation and instruction. She somewhat feels that she can do it herself. The x-ray probably should be reassessed in 2-3 days to see if there has been any change. Thank you for asking me to assist in her care.
[2018-11-24 06:37] LABS: Calcium 8.5 mg/dl (8.5-10.1); Creatinine Clr Calc Pharmacy 40.3 ml/min; Est GFR (African American) 63.6; Est GFR (Non-African American) 54.9; Potassium 4.1 mmol/L (3.5-5.1)
[2018-11-24] MEDS: SENNA 8.6 MG TAB PO SCH (08:25)
[2018-11-24] MEDS: LISINOPRIL 20 MG TAB PO SCH (08:25)
[2018-11-24] MEDS: ATENOLOL 25 MG TABLET PO SCH ×2 (08:26→21:15)
[2018-11-24] MEDS: FLUTICASONE PROPIONATE NA SPR 16 GM BTL SCH (08:26)
[2018-11-24] MEDS: MULTIVITAMIN TAB PO SCH (08:26)
[2018-11-24] MEDS: POTASSIUM CHLORIDE 20 MEQ TABCR PO SCH (08:26)
[2018-11-24] MEDS: ASPIRIN 325 MG ECTAB PO SCH (08:26)
[2018-11-24] MEDS: DOCUSATE SODIUM 100 MG CAP PO SCH ×2 (08:32→21:15)
--- NOTE | 2018-11-24 08:51 | XRay Report ---
XR chest 1V portable CLINICAL HISTORY: Progressive respiratory failure COMPARISON STUDY: 11/23/2018 FINDINGS: There are postsurgical changes of midline sternotomy. The heart is enlarged. There is a shelley pected left pleural effusion with associated left basilar atelectasis/consolidation. There is mild pu lmonary vascular congestion.[ IMPRESSION: Stable findings. Persistent cardiomegaly, mild pulmonary vascular congestion, small left pleural effusion and associated left basilar atelectasis/consolidation Electronically signed by: Dudley Ng M.D. 11/24/2018 8:50 AM
[2018-11-24] MEDS: BUMETANIDE 1.5 MG in SYRINGE 0 ML IV SCH ×2 (09:09→16:49)
--- NOTE | 2018-11-24 09:31 | Progress Note ---
DATE: 11/24/2018 PULMONARY PROGRESS NOTE TIME: 9:00 a.m. SUBJECTIVE: The patient feels a little better. She did wear BiPAP last night for approximately 5 or 6 hours. She insists that she did not sleep at all with the BiPAP on, although I suspect she did. She does not feel tired today. Her breathing is a little bit improved. I am surprised that she tolerated the BiPAP. She was not bothered by the noise as she states she was with hers at home. OBJECTIVE: GENERAL: The patient appears comfortable at rest. She does not appear tachypneic like she was yesterday. VITAL SIGNS: Temperature is 36.8. Cardiac rate 74 per minute. Rhythm is regular. Blood pressure 125/56. Respiratory rate 20. For the prior 24 hours, intake and output are approximately equal. MUSCULOSKELETAL: The patient has severe kyphosis. In addition, she cannot extend her cervical spine hardly at all. LUNGS: Rales are heard posteriorly bilaterally. Her aeration seems somewhat better. She is still requiring 6 liters of oxygen with a saturation of only 90%. ABDOMEN: Obese. Bowel sounds present. EXTREMITIES: Showed no change in edema as noted yesterday. LABORATORY DATA: Electrolytes today show sodium 136, potassium 4.1, chloride 103, bicarbonate 32. BUN is 24 with a creatinine of 1. Chest x-ray was done this morning. This reports stable findings with postsurgical changes noted as well as suspected left pleural effusion and/or atelectasis, unchanged. IMPRESSION: 1. Acute on chronic respiratory failure with hypoxia and hypercarbia. 2. Small left pleural effusion. 3. Pulmonary hypertension. 4. 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 5. Atelectasis, left base. 6. Untreated obstructive sleep apnea. COMMENTS AND RECOMMENDATIONS: I am surprised the patient did as well as she did with BiPAP. She is talking about considering getting a machine at home. To get either BiPAP or noninvasive ventilator without a sleep study, she would need to have an arterial blood gas done. In addition, she would need an overnight pulse oximetry study done on her usual oxygen. In light of her persistent hypoxia, I do not believe she is ready to go home at present. Consider doing a baseline ABG on O2 to see if she has sufficient pCO2 elevation to qualify. Would need to be 52 mm.
[2018-11-24] MEDS: LEVOFLOXACIN/D5W 750 MG/150 ML BAG IV SCH (10:37)
--- NOTE | 2018-11-24 14:30 | Hospitalist Progress Note ---
Date of Service November 24, 2018 Assessment & Plan (1) Acute on chronic respiratory failure with hypoxia: Patient is more profoundly hypoxic she has multiple medical reasons that all result in her having respiratory failure from restrictive lung disease due to her kyphosis to her previous history of heart failure to likely atelectasis due to a small pleural effusion. Likely pulmonary hypertension from untreated sleep apnea, these of all added together to create more profound hypoxia. The patient tolerated BiPAP, increasing diuretics on 11/24 adding levofloxacin renal dose adjusted to treat bronchitis (2) Elevated troponin: Patient has elevated troponin Patient's troponin remains elevated but is not trended upward. Heparin was discontinued, consider this demand ischemia the patient has refused any consideration for cardiac catheterization maintaining her beta-haseeb which is atenolol She states her atenolol was 25 twice daily supplement her oxygen given her chronic lung disease. (3) CHF (congestive heart failure): Patient is acute on chronic diastolic heart failure Increase Bumex to 1.5 mg twice daily on 11/24 (4) Coronary artery disease involving coronary bypass graft: Patient is a history of coronary artery disease with bypass grafting and multiple stents in the past. She previously has self discontinued Plavix therapy due to epistaxis she is maintained on aspirin 81 mg which will be escalated to 325 given t atenolol 25 twice daily and is also on lisinopril 20 mg at this time (5) Restrictive lung disease: Patient has restrictive lung disease due to kyphoscoliosis. Typically does wear some oxygen at home. We will continue supplementing her oxygen she has not showed a need for any bronchodilators at this time Chronic respiratory failure with hypoxia Attempt BiPAP, will track a daytime ABG off BiPAP to see if she qualifies for home BiPAP. PCO2 needs to be above 52 (6) DVT prophylaxis: DVT prevention is heparin subcu (7) Morbid obesity: Morbid obesity, BMI 44.0 kg/m*m Subjective Patient still fairly hypoxic requiring increased oxygen demands. Chest x-ray does not look significantly different although she does have some increase in left basilar infiltrate is felt to be atelectasis after ultrasound evaluation. Pulmonology is following along the case with us Review of Systems Review of Systems: ROS: Patient is chronically ill and dyspneic No double vision blurry vision No problems with speech or swallowing No palpitations, chest pain or pressure He feels short of breath with exertion No abdominal pain nausea vomiting diarrhea changes in appetite or weight No burning urine urine frequency or changes in color No focal joint pain or muscle pain No skin rashes or oral lesions No unusual bruising or bleeding No focused back pain or numbness or loss of strength No changes in memory or confusion Physical Exam Physical Exam: The patient appeared chronically ill and short of breath Vital signs as documented. Head exam is unremarkable. normocephalic, atraumatic Neck is without jugular venous distension, thyromegaly, or lymphademopathy Lungs are managed more the left than right with faint crackles Cardiac exam reveals Rhythm is regular. First and second heart sounds normal. Abdominal exam reveals normal bowel sounds, no masses, no organomegaly Extremities are moderately edematous and both pedal pulses are present Neurologic exam is A&Ox3, no focal deficits, Skin is warm Dry Results & Data Vital Signs (Past 12 Hours) Vital Signs Temp Pulse Resp BP Pulse Ox 11/24/18 10:40 36.6 C 68 19 112/57 L 91 11/24/18 07:39 36.8 C 72 19 125/56 L 90 11/24/18 03:42 37.1 C 71 18 115/72 92
[2018-11-24] MEDS: HEPARIN SOD 5,000 UNIT/0.5 ML VIAL SQ SCH (21:15)
[2018-11-25 06:13] LABS: Hematocrit (blood only) 37.9 % (37-47); Hemoglobin 11.3 g/dL (12.0-16.0); Mean Corpuscular Hgb Conc 29.8 g/dL (32-36); Mean Platelet Volume 10.4 fL (7.4-10.4); Platelet Count 185 K/uL (130-400); RDW Coefficient of Variation 14.6 % (11.5-14.5); RDW Standard Deviation 52.5 fL (36.4-46.3); Red Blood Count 3.83 M/uL (4.2-5.4); White Blood Count 6.44 K/uL (4.8-10.8)
[2018-11-25 06:51] LABS: BUN Creatinine Ratio 23.9 (10-20); Calcium 8.6 mg/dl (8.5-10.1); Creatinine Clr Calc Pharmacy 40.3 ml/min; Est GFR (African American) 63.6; Est GFR (Non-African American) 54.9; Potassium 4.4 mmol/L (3.5-5.1)
[2018-11-25] MEDS: DOCUSATE SODIUM 100 MG CAP PO SCH ×2 (07:08→20:14)
[2018-11-25] MEDS: ASPIRIN 325 MG ECTAB PO SCH (07:08)
[2018-11-25] MEDS: ATENOLOL 25 MG TABLET PO SCH ×2 (07:08→20:15)
[2018-11-25] MEDS: POTASSIUM CHLORIDE 20 MEQ TABCR PO SCH (07:08)
[2018-11-25] MEDS: MULTIVITAMIN TAB PO SCH (07:08)
[2018-11-25] MEDS: LISINOPRIL 20 MG TAB PO SCH (07:08)
[2018-11-25] MEDS: FLUTICASONE PROPIONATE NA SPR 16 GM BTL SCH (07:09)
[2018-11-25] MEDS: HEPARIN SOD 5,000 UNIT/0.5 ML VIAL SQ SCH ×2 (07:09→21:30)
[2018-11-25] MEDS: SENNA 8.6 MG TAB PO SCH ×2 (07:09→20:15)
[2018-11-25] MEDS ORDERED: SILDENAFIL CITRATE 20 MG TABLET PO SCH (09:00)
[2018-11-25] MEDS: BUMETANIDE 1.5 MG in SYRINGE 0 ML IV SCH (09:00)
[2018-11-25] MEDS ORDERED: BUMETANIDE 0.5 MG in SYRINGE 0 ML IV STA (11:11)
--- NOTE | 2018-11-25 12:53 | Hospitalist Progress Note ---
Date of Service November 25, 2018 Assessment & Plan (1) Acute on chronic respiratory failure with hypoxia: Was admitted because of profoundly hypoxic likely multiple medical reasons such as 1. restrictive lung disease due to her kyphosis 2. Possible acute on chronic heart failure, with history of previous history of heart failure 3. atelectasis due to a small pleural effusion. 4. Likely pulmonary hypertension from untreated sleep apnea, hx of GINO cont tolerated BiPAP, Increase Bumex from 1.5 mg twice daily to 2 mg IV twice daily, Not able to taper down oxygen, she was eating 3 L at home, currently is 6 L/min, (2) Elevated troponin: elevated troponin upon admission, not trended upward. Heparin was discontinued, consider this demand ischemia the patient has refused any consideration for cardiac catheterization maintaining her beta-haseeb which is atenolol (3) CHF (congestive heart failure): Patient is acute on chronic diastolic heart failure Also see above, increase Bumex to 2 mg twice daily on 11/25/2018 (4) Coronary artery disease involving coronary bypass graft: history of coronary artery disease with bypass grafting and multiple stents in the past. previously has self discontinued Plavix therapy due to epistaxis is maintained on aspirin 81 mg cont atenolol 25 twice daily and lisinopril 20 mg at this time (5) Restrictive lung disease: has restrictive lung disease due to kyphoscoliosis. Typically does wear some oxygen at home. continue supplementing her oxygen she has not showed a need for any bronchodilators at this time Chronic respiratory failure with hypoxia Attempt BiPAP, will track a daytime ABG off BiPAP to see if she qualifies for home BiPAP. PCO2 needs to be above 52 (6) DVT prophylaxis: DVT prevention is heparin subcu (7) Morbid obesity: Morbid obesity, BMI 44.0 kg/m*m Increase activity PTOT, Reported constipation, increase Senokot from once daily to twice daily Subjective Feeling okay, still required 6 L of nasal cannula oxygen, was trying to decrease to 5 L his oxygen dropped, .eating drinking okay, denies chest pain Review of Systems Review of Systems: Review of Systems Constitutional: positive weakness, or fatigue Respiratory: no cough, sputum, wheezing, Cardiac: No chest pain, No orthopnea, No PND, No claudication, No palpitations, Abdomen: No pain, No nausea, No vomiting, No diarrhea, No constipation, No GI bleeding Musculoskeletal: No joint pain, No muscle pain, No swelling, No calf pain, No problem reported : No dysuria, No urinary frequency, No incontinence, No hematuria Neurologic: No paralysis, No weakness, No numbness/tingling, No vertigo, No balance problems Psychiatric: No depression symptoms, No anhedonism, Heme: No abnormal bleeding/bruising, No clotting problems, Skin: No rash, No itch, No new/changing skin lesions, Physical Exam Physical Exam: Constitutional: Alert, obesity, cooperative and in no distress. HEENT: Unremarkable Neck: No jugular venous distention, carotid pulses are normal and equal bilaterally without bruits. Pulmonary: Clear to auscultation bilaterally. Right lower lung has crackles, Cardiac: Regular rhythm with a soft crescendo decrescendo murmur at the base wit h a grade 2/6 holosystolic murmur at the apex, no gallop or rub. Abdomen: Soft, nontender with normal bowel sounds. Extremities: +2 bilateral pretibial edema. Distal pulses intact. Neurologic: No focal findings. Gait was not tested. Skin: No rash, ecchymoses or petechiae. Results & Data Vital Signs (Past 12 Hours) Vital Signs Temp Pulse Resp BP Pulse Ox 11/25/18 11:06 36.6 C 67 19 104/48 L 92 11/25/18 07:03 36.7 C 64 20 108/50 L 94 11/25/18 03:37 36.7 C 65 18 105/51 L 91 Laboratory Results Labs reviewed, hemoglobin 11.3, creatinine 0.9, Diagnostic Findings Chest x-ray yesterday per report,per report: Persistent cardiomegaly, mild pulmonary vascular congestion, small left pleural effusion and associated left basilar atelectasis/consolidation
[2018-11-25] MEDS: BUMETANIDE 2 MG in SYRINGE 0 ML IV SCH (16:41)
[2018-11-25] MEDS: ALBUT/IPRATROP 3MG/0.5MG NEB 3 ML VIAL NEB SCH (19:20)
--- NOTE | 2018-11-25 19:41 | Progress Note ---
DATE: 11/25/2018 PULMONARY PROGRESS NOTE TIME: 04:10 p.m. SUBJECTIVE: The patient is sleeping when I came into the room. She awakened readily. She states that she did not sleep all night again, while having the BiPAP on. She states this is two nights she did not sleep at all. Therefore, she is sleepy during the day. She does think her breathing feels better. She has no specific complaints. She has found the BiPAP tolerable. OBJECTIVE: VITAL SIGNS: Temperature is 36.8. HEART: Heart rate 70 per minute. Rhythm regular. Blood pressure 115/70. LUNGS: Auscultation of the lung flaherty reveals rales posteriorly bilaterally which are unchanged. Respiratory rate 20 breaths per minute. Saturation 97% on 6 liter nasal cannula at the time of my exam. I decreased her oxygen to 5 liters. LABORATORY DATA: White count of 6.44. Hemoglobin 11.3. Platelets 185,000. Electrolytes show sodium 140, potassium 4.4, chloride 105, bicarbonate 32. IMPRESSIONS: 1. Acute on chronic respiratory failure with hypoxia and hypercarbia. 2. Small left pleural effusion. 3. Pulmonary hypertension. 4. 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 5. Atelectasis. 6. Obstructive sleep apnea -- untreated. COMMENTS AND RECOMMENDATIONS: The patient is clinically a bit improved. At least she is tolerating the BiPAP. Hopefully, she will start falling asleep with it better. Her oxygen needs have persisted to be still high. Hopefully, this will improve. Perhaps could try some physical therapy and see if they could ambulate her a bit tomorrow. Consideration is given to doing an arterial blood gas to verify what her actual pCO2 levels are. The CO2 off the electrolytes has been 32, which is borderline abnormal. Would continue with her other interventions. We will give her some nebulizer treatments and see if this helps her at all. There will be a new pulmonary service on as of tomorrow. I have not asked them to follow up with the patient, but feel free to reconsult if their assistance is needed.
[2018-11-26 06:00] LABS: Basophils # (auto) 0.03 K/uL (0-0.2); Basophils % (auto) 0.4 %; Eosinophils # (auto) 0.13 K/uL (0-0.5); Eosinophils % (auto) 1.9 %; Hemoglobin 11.3 g/dL (12.0-16.0); Immature Granulocytes # (auto) 0.02 K/uL (0.00-0.02); Immature Granulocytes % (auto) 0.3 %; Lymphocytes # (auto) 1.06 K/uL (1.2-3.4); Lymphocytes % (auto) 15.3 %; Mean Corpuscular Hgb Conc 30.5 g/dL (32-36); Mean Corpuscular Volume 98.4 fL (80-100); Mean Platelet Volume 10.4 fL (7.4-10.4); Monocytes % (auto) 8.7 %; Neutrophils # (auto) 5.09 K/uL (1.4-6.5); Neutrophils % (auto) 73.4 %; Platelet Count 185 K/uL (130-400); RDW Coefficient of Variation 14.5 % (11.5-14.5); RDW Standard Deviation 52.1 fL (36.4-46.3); Red Blood Count 3.76 M/uL (4.2-5.4); White Blood Count 6.93 K/uL (4.8-10.8)
[2018-11-26 06:05] LABS: Allen Test Pos (Pos); HCO3 ABG 32 mmol/L (19-24); Oxygen Saturation ABG 95.9 % (90-95); PCO2 ABG 53 mmHg (35-46); PO2 ABG 82 mm/Hg (80-95)
[2018-11-26 06:27] LABS: BUN Creatinine Ratio 27.3 (10-20); Calcium 8.5 mg/dl (8.5-10.1); Creatinine Clr Calc Pharmacy 43.4 ml/min; Est GFR (African American) 69.5; Magnesium 2.4 mg/dl (1.8-2.4); Potassium 4.2 mmol/L (3.5-5.1)
[2018-11-26] MEDS: SENNA 8.6 MG TAB PO SCH ×2 (07:12→21:07)
[2018-11-26] MEDS: ATENOLOL 25 MG TABLET PO SCH ×2 (07:12→21:11)
[2018-11-26] MEDS: POTASSIUM CHLORIDE 20 MEQ TABCR PO SCH (07:12)
[2018-11-26] MEDS: ASPIRIN 325 MG ECTAB PO SCH (07:13)
[2018-11-26] MEDS: HEPARIN SOD 5,000 UNIT/0.5 ML VIAL SQ SCH ×2 (07:13→21:06)
[2018-11-26] MEDS: MULTIVITAMIN TAB PO SCH (07:13)
[2018-11-26] MEDS: LISINOPRIL 20 MG TAB PO SCH (07:13)
[2018-11-26] MEDS: FLUTICASONE PROPIONATE NA SPR 16 GM BTL SCH (07:14)
[2018-11-26] MEDS: ALBUT/IPRATROP 3MG/0.5MG NEB 3 ML VIAL NEB SCH ×4 (07:16→19:36)
[2018-11-26] MEDS: DOCUSATE SODIUM 100 MG CAP PO SCH ×2 (07:17→21:11)
--- NOTE | 2018-11-26 09:06 | Cardiology Progress Note ---
Date of Service November 26, 2018 Assessment & Plan (1) Elevated troponin: Her troponin on presentation was slightly elevated at 0.093, this added descending pattern over the next 2 subsequent measurements. This is consistent with demand ischemia from hypoxia and her known heart disease. I would not pursue further evaluation. (2) CHF exacerbation: We have made little progress on her CHF, her I and O and weight is hard to evaluate however it has really not changed over the last 3 to 4 days. Symptomatically she does appear to be improved with pulmonary treatment. We cannot go up any further on her Bumex. I would like to see her lose a little bit of fluid while she is here, that might help her breathing even though it is primarily pulmonary. I am going to add Zaroxolyn to her regimen. (3) Pulmonary hypertension: Her echocardiogram shows significant pulmonary hypertension. This is no doubt on the basis of long-standing lung disease and hypoxia. Diuresis may help somewhat, there is little else to do. 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 This is based on exam and recent echo. This valve does not require anticoagulation. (5) Mitral regurgitation: She has mitral regurgitation, evidently this was not seen on her prior echocardiogram but it is eccentric and perhaps it was missed. It may be contributing to pulmonary hypertension, and it may be contributing to her CHF but it is not severe enough that we would consider valve replacement or surgery. She seems to be aware that she has difficulties with her valve and that she is not a surgical candidate for repair of it. Subjective She is feeling better today than last week, she feels that her breathing is better. She does note however that her leg swelling is not changed and she feels that even her thighs are swollen compared to in the past. Physical Exam Physical Exam: Constitutional: Alert, cooperative and in no distress. Sitting in her chair today on nasal oxygen. Pulmonary: Decreased breath sounds and crackles at both bases. Cardiac: Regular rhythm with a grade 2/6 crescendo decrescendo murmur at the base and a grade 2/6 holosystolic murmur at the apex, no gallop or rub. Abdomen: Soft, nontender with normal bowel sounds. Extremities: +2 bilateral pretibial edema. Skin: No rash, ecchymoses or petechiae. Results & Data Vital Signs (Past 12 Hours) Vital Signs Temp Pulse Pulse Resp BP Pulse Ox 11/26/18 07:44 36.2 C L 70 20 116/51 L 90 11/26/18 07:16 77 18 96 11/26/18 03:06 36.5 C 65 18 103/51 L 92 11/25/18 23:26 36.6 C 64 18 112/58 L 92 11/25/18 22:12 84 18 92 Diagnostic Findings Telemetry: Sinus rhythm, no significant abnormality (1) CHF exacerbation Heart failure type: unspecified Qualified Code(s): I50.9 - Heart failure, unspecified
[2018-11-26] MEDS: metOLazone 2.5 MG TABLET PO SCH (09:35)
[2018-11-26] MEDS: BUMETANIDE 2 MG in SYRINGE 0 ML IV SCH ×2 (10:29→16:43)
[2018-11-26] MEDS: LEVOFLOXACIN/D5W 750 MG/150 ML BAG IV SCH (10:29)
--- NOTE | 2018-11-26 12:46 | Hospitalist Progress Note ---
Date of Service November 26, 2018 Assessment & Plan (1) Acute on chronic respiratory failure with hypoxia: Was admitted because of profoundly hypoxic likely multiple medical reasons such as 1. restrictive lung disease due to her kyphosis 2. Possible acute on chronic heart failure, with history of previous history of heart failure 3. atelectasis due to a small pleural effusion. 4. Likely pulmonary hypertension from untreated sleep apnea, hx of GINO cont tolerated BiPAP, On yesterday, able 2018, increase Bumex from 1.5 mg twice daily to 2 mg IV twice daily, Oxygen level has been tapered down from 6 L and currently is 3 L, which is her baseline, (2) Elevated troponin: elevated troponin upon admission, not trended upward. Heparin was discontinued, consider this demand ischemia the patient has refused any consideration for cardiac catheterization maintaining her beta-haseeb which is atenolol (3) CHF (congestive heart failure): Patient is acute on chronic diastolic heart failure Also see above, increase Bumex to 2 mg twice daily on 11/25/2018, hypoxic is getting better, (4) Coronary artery disease involving coronary bypass graft: Stable continue current care, history of coronary artery disease with bypass grafting and multiple stents in the past. previously has self discontinued Plavix therapy due to epistaxis is maintained on aspirin 81 mg cont atenolol 25 twice daily and lisinopril 20 mg at this time (5) Restrictive lung disease: Stable continue current care, has restrictive lung disease due to kyphoscoliosis. Typically does wear some oxygen at home, 3 L/min Chronic respiratory failure with hypoxia Attempt BiPAP, will track a daytime ABG off BiPAP to see if she qualifies for home BiPAP. PCO2 needs to be above 52 This morning ABG seems PCO2 is 53, will talk to foster care case manager to see if qualify for home BiPAP or not (6) DVT prophylaxis: DVT prevention is heparin subcu (7) Morbid obesity: Morbid obesity, BMI 44.0 kg/m*m Increase activity PTOT, Reported constipation, increase Senokot from once daily to twice daily Patient up and walk, possible able to discharge home tomorrow Subjective Sitting up in chair, happy and pleasant, because of able to taper down oxygen from 6 L to 3 L, speak full sentences, has been ambulation in the spear hallway, Review of Systems Review of Systems: All systems reviewed & are unremarkable except as noted in HPI & below Physical Exam Physical Exam: Constitutional: Alert, obesity, pleasant, cooperative and in no distress. HEENT: Unremarkable Neck: No jugular venous distention, carotid pulses are normal and equal bilaterally without bruits. Pulmonary: Clear to auscultation bilaterally. familia lung midl rale, no crackles, Cardiac: Regular rhythm with a soft crescendo decrescendo murmur at the base with a grade 2/6 holosystolic murmur at the apex, no gallop or rub. Abdomen: Soft, nontender with normal bowel sounds. Extremities: +1 bilateral pretibial edema. Distal pulses intact. Neurologic: No focal findings. Gait was not tested. Skin: No rash, ecchymoses or petechiae. Results & Data Vital Signs (Past 12 Hours) Vital Signs Temp Pulse Resp BP Pulse Ox 11/26/18 11:39 36.3 C L 75 20 103/47 L 90 11/26/18 11:25 71 18 91 11/26/18 07:44 36.2 C L 70 20 116/51 L 90 11/26/18 07:16 77 18 96 11/26/18 03:06 36.5 C 65 18 103/51 L 92 Laboratory Results - last 24 hr 11/26/18 11/26/18 11/26/18 05:52 05:52 05:52 WBC 6.93 RBC 3.76 L Hgb 11.3 L Hct 37.0 MCV 98.4 MCH 30.1 MCHC 30.5 L RDW Std Deviation 52.1 H RDW Coeff of Jose 14.5 Plt Count 185 MPV 10.4 Immature Gran % (Auto) 0.3 Neut % (Auto) 73.4 Lymph % (Auto) 15.3 [place] % (Auto) 8.7 Eos % (Auto) 1.9 Baso % (Auto) 0.4 Immature Gran # (Auto) 0.02 Neut # (Auto) 5.09 Lymph # (Auto) 1.06 L [place] # (Auto) 0.60 H Eos # (Auto) 0.13 Baso # (Auto) 0.03 ABG pH 7.40 ABG pCO2 53 H ABG pO2 82 ABG HCO3 32 H ABG O2 Saturation 95.9 H ABG Base Excess 5.9 H Haja Test Pos Barometric Pressure 735.3 Oxygen Given 5 L Sodium 139 Potassium 4.2 Chloride 104 Carbon Dioxide 32 Anion Gap 3.0 BUN 25 H Creatinine 0.91 Est Cr Clr Drug Dosing 43.4 Est GFR ( Amer) 69.5 Est GFR (Non-Af Amer) 60.0 BUN/Creatinine Ratio 27.3 H Glucose 102 H Calcium 8.5 Magnesium 2.4
[2018-11-27 06:02] LABS: Basophils # (auto) 0.03 K/uL (0-0.2); Basophils % (auto) 0.5 %; Eosinophils # (auto) 0.15 K/uL (0-0.5); Eosinophils % (auto) 2.3 %; Hematocrit (blood only) 36.4 % (37-47); Immature Granulocytes # (auto) 0.02 K/uL (0.00-0.02); Immature Granulocytes % (auto) 0.3 %; Lymphocytes # (auto) 0.88 K/uL (1.2-3.4); Lymphocytes % (auto) 13.7 %; Mean Corpuscular Hgb Conc 30.2 g/dL (32-36); Mean Corpuscular Volume 98.4 fL (80-100); Mean Platelet Volume 10.7 fL (7.4-10.4); Monocytes # (auto) 0.64 K/uL (0.11-0.59); Monocytes % (auto) 9.9 %; Neutrophils # (auto) 4.72 K/uL (1.4-6.5); Neutrophils % (auto) 73.3 %; Platelet Count 178 K/uL (130-400); RDW Coefficient of Variation 14.5 % (11.5-14.5); White Blood Count 6.44 K/uL (4.8-10.8)
[2018-11-27 06:36] LABS: BUN Creatinine Ratio 25.7 (10-20); Calcium 8.9 mg/dl (8.5-10.1); Creatinine Clr Calc Pharmacy 40.5 ml/min; Est GFR (African American) 64.4; Est GFR (Non-African American) 55.5; Magnesium 2.3 mg/dl (1.8-2.4)
[2018-11-27] MEDS: ALBUT/IPRATROP 3MG/0.5MG NEB 3 ML VIAL NEB SCH ×4 (07:11→19:09)
[2018-11-27] MEDS: POTASSIUM CHLORIDE 20 MEQ TABCR PO SCH (08:01)
[2018-11-27] MEDS: DOCUSATE SODIUM 100 MG CAP PO SCH ×2 (08:01→21:11)
[2018-11-27] MEDS: metOLazone 2.5 MG TABLET PO SCH (08:01)
[2018-11-27] MEDS: ATENOLOL 25 MG TABLET PO SCH ×2 (08:01→21:10)
[2018-11-27] MEDS: BUMETANIDE 1 MG TAB PO SCH ×2 (08:01→21:11)
[2018-11-27] MEDS: LISINOPRIL 20 MG TAB PO SCH (08:01)
[2018-11-27] MEDS: SENNA 8.6 MG TAB PO SCH ×2 (08:01→21:10)
[2018-11-27] MEDS: ASPIRIN 325 MG ECTAB PO SCH (08:02)
[2018-11-27] MEDS: HEPARIN SOD 5,000 UNIT/0.5 ML VIAL SQ SCH ×2 (08:02→21:10)
[2018-11-27] MEDS: FLUTICASONE PROPIONATE NA SPR 16 GM BTL SCH (08:02)
[2018-11-27] MEDS: MULTIVITAMIN TAB PO SCH (08:02)
[2018-11-27 08:07] LABS: HCO3 ABG 33 mmol/L (19-24); Oxygen Saturation ABG 86.9 % (90-95); PCO2 ABG 54 mmHg (35-46); PO2 ABG 54 mm/Hg (80-95); pH ABG 7.41 (7.35-7.45)
[2018-11-27 08:14] LABS: Allen Test Pos (Pos)
--- NOTE | 2018-11-27 15:52 | Hospitalist Progress Note ---
Date of Service November 27, 2018 Assessment & Plan (1) Acute on chronic respiratory failure with hypoxia: Was admitted because of profoundly hypoxic likely multiple medical reasons such as 1. restrictive lung disease due to her kyphosis 2. Possible acute on chronic heart failure, with history of previous history of heart failure 3. atelectasis due to a small pleural effusion. 4. Likely pulmonary hypertension from untreated sleep apnea, hx of GINO cont tolerated BiPAP, On 2 days ago , november 25 2018, increase Bumex from 1.5 mg twice daily to 2 mg IV twice daily, Oxygen level has been tapered down from 6 L and currently is 3 L, which is her baseline, Has been continue stable, cardiology added metolazone p.o., Will switch Bumex to p.o. today, preparing to go home tomorrow (2) Elevated troponin: elevated troponin upon admission, not trended upward. Heparin was discontinued, consider this demand ischemia the patient has refused any consideration for cardiac catheterization maintaining her beta-haseeb which is atenolol (3) CHF (congestive heart failure): Patient is acute on chronic diastolic heart failure Also see above, increase Bumex to 2 mg twice daily on 11/25/2018, hypoxic is continue getting better, Change Bumex to p.o., continue metolazone, (4) Coronary artery disease involving coronary bypass graft: Stable continue current care, history of coronary artery disease with bypass grafting and multiple stents in the past. previously has self discontinued Plavix therapy due to epistaxis is maintained on aspirin 81 mg cont atenolol 25 twice daily and lisinopril 20 mg at this time (5) Restrictive lung disease: Stable continue current care, has restrictive lung disease due to kyphoscoliosis. Typically does wear some oxygen at home, 3 L/min Chronic respiratory failure with hypoxia Attempt BiPAP, will track a daytime ABG off BiPAP to see if she qualifies for home BiPAP. PCO2 needs to be above 52 This morning ABG seems PCO2 is 53, We will order nocturnal oxygen studies to see if she qualified for BiPAP (6) DVT prophylaxis: DVT prevention is heparin subcu (7) Morbid obesity: Morbid obesity, BMI 44.0 kg/m*m Increase activity PTOT, Patient up and walk, today we will change Bumex to p.o., watch renal and electrolytes when on metolazone, discontinue Galdamez catheter, and planning to possible able to discharge home tomorrow Subjective Continue doing well, out of bed to the chair, continue feel shortness of breath in the baseline, on nasal cannula 3 L/min which is her baseline at home, Out of bed to the chair, pleasant, conversational, doing the same, Review of Systems Review of Systems: All systems reviewed & are unremarkable except as noted in HPI & below Physical Exam Physical Exam: Constitutional: Alert, obesity, pleasant, cooperative and in no distress. HEENT: Unremarkable Neck: No jugular venous distention, carotid pulses are normal and equal bilaterally without bruits. Pulmonary: Clear to auscultation bilaterally. familia lung midl rale, no crackles, Cardiac: Regular rhythm with a soft crescendo decrescendo murmur at the base with a grade 2/6 holosystolic murmur at the apex, no gallop or rub. Abdomen: Galdamez catheter in place, soft, nontender with normal bowel sounds. Extremities: +1 bilateral pretibial edema. Distal pulses intact. Neurologic: No focal findings. Gait was not tested. Skin: No rash, ecchymoses or petechiae. Results & Data Vital Signs (Past 12 Hours) Vital Signs Temp Pulse Resp BP Pulse Ox 11/27/18 15:32 36.8 C 68 23 101/43 L 90 11/27/18 15:01 81 20 93 11/27/18 11:43 36.5 C 72 20 118/50 L 87 L 11/27/18 11:17 68 18 96 11/27/18 07:13 36.5 C 71 18 105/48 L 91 11/27/18 07:11 75 18 91 Laboratory Results - last 24 hr 11/27/18 11/27/18 11/27/18 05:41 05:41 07:57 WBC 6.44 RBC 3.70 L Hgb 11.0 L Hct 36.4 L MCV 98.4 MCH 29.7 MCHC 30.2 L RDW Std Deviation 52.0 H RDW Coeff of Jose 14.5 Plt Count 178 MPV 10.7 H Immature Gran % (Auto) 0.3 Neut % (Auto) 73.3 Lymph % (Auto) 13.7 [place] % (Auto) 9.9 Eos % (Auto) 2.3 Baso % (Auto) 0.5 Immature Gran # (Auto) 0.02 Neut # (Auto) 4.72 Lymph # (Auto) 0.88 L [place] # (Auto) 0.64 H Eos # (Auto) 0.15 Baso # (Auto) 0.03 ABG pH 7.41 ABG pCO2 54 H ABG pO2 54 L ABG HCO3 33 H ABG O2 Saturation 86.9 L ABG Base Excess 7.2 H Haja Test Pos Barometric Pressure 732.9 Oxygen Given 3L Sodium 141 Potassium 4.0 Chloride 102 Carbon Dioxide 34 H Anion Gap 5.0 BUN 25 H Creatinine 0.97 Est Cr Clr Drug Dosing 40.5 Est GFR ( Amer) 64.4 Est GFR (Non-Af Amer) 55.5 BUN/Creatinine Ratio 25.7 H Glucose 100 H Calcium 8.9 Magnesium 2.3
[2018-11-28 06:22] LABS: BUN Creatinine Ratio 29.4 (10-20); Calcium 8.8 mg/dl (8.5-10.1); Creatinine Clr Calc Pharmacy 35.4 ml/min; Est GFR (African American) 54.7; Est GFR (Non-African American) 47.2; Magnesium 2.4 mg/dl (1.8-2.4); Potassium 3.5 mmol/L (3.5-5.1)
[2018-11-28] MEDS: ALBUT/IPRATROP 3MG/0.5MG NEB 3 ML VIAL NEB SCH ×2 (07:14→11:08)
[2018-11-28] MEDS: ATENOLOL 25 MG TABLET PO SCH (08:00)
[2018-11-28] MEDS: metOLazone 2.5 MG TABLET PO SCH (08:00)
[2018-11-28] MEDS: ASPIRIN 325 MG ECTAB PO SCH (08:00)
[2018-11-28] MEDS: BUMETANIDE 1 MG TAB PO SCH (08:00)
[2018-11-28] MEDS: LISINOPRIL 20 MG TAB PO SCH (08:01)
[2018-11-28] MEDS: MULTIVITAMIN TAB PO SCH (08:01)
[2018-11-28] MEDS: SENNA 8.6 MG TAB PO SCH (08:01)
[2018-11-28] MEDS: FLUTICASONE PROPIONATE NA SPR 16 GM BTL SCH (08:01)
[2018-11-28] MEDS: DOCUSATE SODIUM 100 MG CAP PO SCH (08:01)
[2018-11-28] MEDS: POTASSIUM CHLORIDE 20 MEQ TABCR PO SCH (08:01)
[2018-11-28] MEDS: HEPARIN SOD 5,000 UNIT/0.5 ML VIAL SQ SCH (08:02)
[2018-11-28] MEDS ORDERED: levoFLOXacin 250 MG TABLET PO SCH (11:00)
--- NOTE | 2018-11-28 12:30 | Cardiology Progress Note ---
Date of Service November 28, 2018 Assessment & Plan (1) Elevated troponin: Her troponin on presentation was slightly elevated at 0.093, this added descending pattern over the next 2 subsequent measurements. This is consistent with demand ischemia from hypoxia and her known heart disease. I would not pursue further evaluation. (2) CHF exacerbation: Her heart failure seems to be improved, I believe she was only in mild heart failure when she presented. With the addition of metolazone she has lost some weight (although not a lot) and I believe is an appropriate fluid level. I would recommend sending her home on Bumex and as needed metolazone, not to take metolazone daily as she will likely become dehydrated.. (3) Pulmonary hypertension: Her echocardiogram shows significant pulmonary hypertension. This is no doubt on the basis of long-standing lung disease and hypoxia. Diuresis may help somewhat, there is little else to do. 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 This is based on exam and recent echo. This valve does not require anticoagulation. (5) Mitral regurgitation: She has mitral regurgitation, evidently this was not seen on her prior echocardiogram but it is eccentric and perhaps it was missed. It may be contributing to pulmonary hypertension, and it may be contributing to her CHF but it is not severe enough that we would consider valve replacement or surgery. She seems to be aware that she has difficulties with her valve and that she is not a surgical candidate for repair of it. Subjective She feels very good today, she thinks her breathing is excellent and she is in good spirits. She is planning going home today. Physical Exam Physical Exam: Constitutional: Alert, cooperative and in no distress. Pulmonary: Clear to auscultation bilaterally. Cardiac: Regular rhythm with no murmur, gallop or rub. Abdomen: Soft, nontender with normal bowel sounds. Extremities: No edema. Skin: No rash, ecchymoses or petechiae. Results & Data Vital Signs (Past 12 Hours) Vital Signs Temp Pulse Resp BP BP Pulse Ox 11/28/18 12:23 36.8 C 63 20 119/58 L 113/55 L 92 11/28/18 11:51 36.8 C 63 20 119/58 L 113/55 L 92 11/28/18 10:47 36.8 C 63 113/55 L 92 11/28/18 07:16 68 20 93 11/28/18 07:03 37.0 C 71 16 93/60 L 94 11/28/18 03:27 36.8 C 61 16 104/41 L 91 Diagnostic Findings Telemetry: Sinus rhythm with frequent premature ventricular beats (1) CHF exacerbation Heart failure type: unspecified Qualified Code(s): I50.9 - Heart failure, unspecified
--- NOTE | 2018-11-28 14:17 | Discharge Summary ---
Date of Service November 28, 2018 Admission HPI Per Admitting Provider Patient presents to the ER with about a 6week incidence of slowly progressive shortness of breath and weight gain. She states her normal weight about 172 pounds she feels she is in the mid 180s. She is not tried to self increase any of her diuretic therapy at home until the last few days where she went from 1 mg of Bumex a day to 1-/2. She had no chest pain or pressure along the way she denies any dietary medical indiscretion along the way she does have a significant history most recently of having multiple recurrent pneumonias and usually either complicated by heart failure or heart failure complicated by p neumonia where she is been in and out of the hospital over the last 6 months. Patient gets most of her cardiology care and [place] with Dr. Mustafa. She previously has had a CABG stenting and aortic valve replacement which has been a bioprosthetic valve currently today the patient had no fevers or chills or coughing she does feel short of breath she is markedly swollen lower extremities in the emergency department she is found to have elevated troponin some T wave inversions which seem to be new on her EKG and chest x-ray consistent with bilateral pulmonary edema. She previously carries to the diagnosis of diastolic heart failure having a most recent echocardiogram in our facility over one year ago showing a preserved ejection fraction. In the ER the patient supplemental oxygen and Bumex therapy with the beginning of diuresis remainder of her evaluation other than was noted it was unremarkable Principal Diagnosis chf exac Discharge Exam constitutional: Alert, obesity, pleasant, cooperative and in no distress. HEENT: Unremarkable Neck: No jugular venous distention, carotid pulses are normal and equal bilaterally without bruits. Pulmonary: Clear to auscultation bilaterally. familia lung mild rale, no crackles, Cardiac: Regular rhythm with a soft crescendo decrescendo murmur at the base with a grade 2/6 holosystolic murmur at the apex, no gallop or rub. Abdomen: Galdamez catheter in place, soft, nontender with normal bowel sounds. Extremities: +1 bilateral pretibial edema. Distal pulses intact. Neurologic: No focal findings. Gait was not tested. Skin: No rash, ecchymoses or petechiae. Discharge Data Allergies Allergy/AdvReac Type Severity Reaction Status Date / Time cefaclor Allergy Unknown Verified 11/21/18 14:09 ibuprofen Allergy Unknown Verified 11/21/18 14:09 Consultations 11/21/18 12:39 ED Decision to Admit Stat 11/21/18 14:45 Consult Cardiology Routine 11/23/18 11:40 Consult Pulmonology Routine 11/26/18 12:47 Consult Case Management - Discharge Planning Routine Hospital Course (1) Acute on chronic respiratory failure with hypoxia: Was admitted because of profoundly hypoxic likely multiple medical reasons such as 1. restrictive lung disease due to her kyphosis 2. Possible acute on chronic heart failure, with history of previous history of heart failure 3. atelectasis due to a small pleural effusion. 4. Likely pulmonary hypertension from untreated sleep apnea, hx of GINO cont tolerated BiPAP, On 3 days ago , november 25 2018, increase Bumex from 1.5 mg twice daily to 2 mg IV twice daily, Has changed to Bumex to 2 mg p.o. twice daily from yesterday, patient continued doing well, Oxygen level has been tapered down from 6 L and currently is 3 L, which is her baseline, and has been stable for 2 to 3 days, Has been continue stable, cardiology added metolazone p.o., renal function is fair, today's BUN is 33, creatinine 1.1, Primary care physician need to closely follow-up renal function and electrolytes while patient metolazone (2) Elevated troponin: elevated troponin upon admission, not trended upward. Heparin was discontinued, consider this demand ischemia the patient has refused any consideration for cardiac catheterization maintaining her beta-haseeb which is atenolol (3) CHF (congestive heart failure): Patient is acute on chronic diastolic heart failure Also see above, increase Bumex to 2 mg twice daily on 11/25/2018, hypoxic is continue getting better, Changed Bumex to p.o., continue metolazone, (4) Coronary artery disease involving coronary bypass graft: Stable continue current care, history of coronary artery disease with bypass grafting and multiple stents in the past. previously has self discontinued Plavix therapy due to epistaxis is maintained on aspirin 81 mg cont atenolol 25 twice daily and lisinopril 20 mg at this time (5) Restrictive lung disease: Stable continue current care, has restrictive lung disease due to kyphoscoliosis. Typically does wear some oxygen at home, 3 L/min Chronic respiratory failure with hypoxia Attempt BiPAP, will track a daytime ABG off BiPAP to see if she qualifies for home BiPAP. PCO2 needs to be above 52 This morning ABG seems PCO2 is 53, ordered nocturnal oxygen studies was having significant hypoxic when 3 L/min Due to restrictive thoracic cage abnormal, patient now requires noninvasive home ventilator. Bi level therapy with and without rate will be ineffective as patient required volume target mode, Ventilation is required to decrease the work of breathing and improve pulmonary status. interruption of ventilator support will lead to decline of health status. (6) DVT prophylaxis: DVT prevention is heparin subcu (7) Morbid obesity: Morbid obesity, BMI 44.0 kg/m*m Increase activity PTOT, Patient up and walk, today we will change Bumex to p.o., watch renal and electrolytes when on metolazone, discontinue Galdamez catheter, and planning to possible able to discharge home today Total Time Total Time Spent Total Time Spent (In Minutes): > 30 Discharge Plan Discharge Items Patient Disposition: Home - Home Health Services Reason For Visit: ACUTE HYPOXIC RESPIRATORY FAILURE WITH ELEVATED Discharge Diagnosis: 1 Condition: Fair Discharge Goals: Decrease discomfort, Diagnostic testing, Improve disease control, Improve function and Learn about illness Activity: Resume your previous activity Non-emergency contact: Primary Care Provider and Auto Driver Call non-emergency contact if: you have any medication questions Follow-up/Referrals: Nicole Packer DO [Primary Care Provider] - 12/03/18 1:10 pm (Please, follow up at Dr. Packer's office with her associate, Dr. Clarice Diaz, on MondayDecember 03 at 1:10 pm. *If you need to change this appointment, call their office at [phone].) Elena Harris PA-C [Physician Corn Grower] - 12/07/18 10:30 am (Please, follow up at [facility] Cardiology Office / CHF Clinic with Janneth Harris PA-C on MondayDecember 07 at 10:30 am. *The office is located in [address] of [facility]. This is the big building located next to this [facility]. If you need to change this appointment, call the office at [phone]. ) Diet: Heart Healthy and Low Sodium (2gm) Fluids: 1500ml (6 cups) Addtl Provider Instructions: you have Acute on chronic respiratory failure with hypoxia: we have BiPAP set up for you, you need to continue your Bumex is 2 mg twice daily, your new medicine also includes metolazone you need to have bmp, mag checked in 3 days with pcp you need to continue fluid restriction at 1.5 L daily . you need to follow up with your primary care physician in 1 week, - take medication as instructed, never overdose or any misuse, or take with alcohol, because misuse of medicine may cause organ damage or , call me, or your primary care physician if have questions of discharge medicaitons. - call your primary care physician, or go to local emergency room if has any fever/chill, chest pain, shortness of breathing, nausea/vomiting/abdominal pain, facial droop/slurry speech/local weakness, or if has any questions. - fall precaution - diet as instructed - you need to follow up with your subspecialist, such as record press tender Call 911 and go to the Emergency Room if: * You have tightness or pain in your chest that does not go away with rest or Nitroglycerin * You are very short of breath even with rest Call your doctor if any of the following symptoms or problems start or get worse: * Shortness of breath or difficulty breathing * Wake up at night short of breath * Chest pain * Cough * Swelling of your hands, fee, or legs * More fatigued or tired with your normal activity * Palpitations - sudden fast heart beats WEIGHT * Weigh yourself every morning after using the bathroom. * Use the same scale. * Wear the same amount of clothing. * Write your weight down on your chart. * Call your doctor if you gain more than 2-3 pounds in 1-2 days. MEDICATIONS * Use this discharge instruction sheet for instructions. * Take your medications at the time your doctor ordered. * Do not skip a dose of your medicines. * If you miss a dose of medicine, take as soon as possible, but DO NOT DOUBLE A DOSE. * Read your medicine information when you get home. * Know all of the side effects of your medicine. * Call your doctor's office if you have any side effects. * Be sure all of your doctors know what medicine and herbs you take (including cold, flu, and herbal medicine). * Pain Medicine: If you do not get relief from your pain, please call your doctor for help. Take the following with you to your follow-up doctor appointments: * Weight Chart * Medication List * List of questions Do not drink excessive alcohol, beer or wine. Prescriptions: New multivitamin [Daily-Ambrosio] Tablet 1 tab PO QAM 30 Days Qty: 30 RF: 0 metolazone 2.5 mg Tablet 2.5 mg PO QAM 30 Days Qty: 30 RF: 0 levofloxacin 250 mg Tablet 250 mg PO DAILY@1100 2 Days Qty: 2 RF: 0 potassium chloride [Klor-Con M20] 20 mEq Tablet,Er Particles/Crystals 20 meq PO DAILY 7 Days Qty: 7 RF: 0 bumetanide 1 mg Tablet 2 mg PO BID 30 Days Qty: 120 RF: 0 fluticasone propionate 50 mcg/actuation [place],Suspension 2 spry NA DAILY 7 Days Qty: 1 RF: 0 Combivent Respimat 20-100 mcg/actuation mist 1 puffs INH QID 14 Days Qty: 4 RF: 0 Continued cyanocobalamin (vitamin B-12) [Vitamin B-12] 1,000 mcg Tablet 1,000 mcg PO DAILY RF: 0 potassium chloride 10 mEq tablet extended release 20 meq PO DAILY RF: 0 aspirin 81 mg Tablet,Delayed Release (Dr/Ec) 81 mg PO HS RF: 0 Caltrate 600 + D 600 mg (1,500 mg)-800 unit Tablet,Chewable 1 tab PO BID RF: 0 Changed lisinopril 40 mg Tablet 20 mg PO DAILY Qty: 0 RF: 0 atenolol 50 mg Tablet 25 mg PO BID Qty: 0 RF: 0 Discontinued bumetanide 1 mg tablet 1 mg PO DAILY RF: 0 Stand-Alone Forms: [facility] Discharge Orders: Discharge Order (Routine); Ordered 11/28/18 Ordered By: Kristopher Rios Admission Data Admit Date/Time: 11/21/18 13:51 Attending Provider: Kristopher Rios Admit Provider: Aniceto Day Primary Care Provider: Nicole Packer Other Providers: Luca Moreland ; Jose Rafael Robles ; Niall Griffin ; Aniceto Day ; Balta Mustafa ; Renard Cason Service: Telemetry Other Interventions: Discharge Summary Assessment (RN) Last Done: 11/28/18 12:23
== END 2018-11-28 14:31 | disposition home health service (06) | DRG 291 ==
LOC: EDACCT# → ED 10:49 → SUATTDRO 13:51 → 2E 13:51